=== PATIENT | male | born 1940 | race Caucasian/White ===

== ENCOUNTER 2020-05-10 13:47 | Emergency (ER) | payer MEDICARE, SELFPAY ==
--- NOTE | ~2020-05-10 | XR_ITS ---
EXAMINATION: 1. XR hand LT min 3V 2. XR wrist LT w scaphoid DATE: 05/10/2020 15:05 INDICATION: Left hand pain. TECHNIQUE: 3 views of left hand and 4 views of left wrist were obtained. COMPARISON: None. 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 No fracture. There is severe osteoarthritis of lunate -hamate joint and first carpometacarpal joint. LEFT HAND: No fracture. There is moderate osteoarthritis of first-third metacarpophalangeal joints an d mild osteoarthritis of fourth and fifth metacarpophalangeal joints and many of the interphalangeal joints. There is severe osteoarthritis of second and third distal interphalangeal joints. 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 Reviewed, dictated and finalized at location A. 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
[2020-05-10 13:53] VITALS: BP 128/72; PULSE 74; RESP 16; TEMP 36.8; O2SAT 96
--- NOTE | 2020-05-10 14:40 | ED.UPPEXIN ---
HPI - Extremity Injury (Upper) General Chief Complaint: Extremity Injury, Upper Stated Complaint: fall - wrist injury Time Seen by Provider: 05/10/20 14:18 Source: patient Mode of arrival: ambulatory Limitations: no limitations History of Present Illness HPI narrative: 79-year-old male Patient states that about 2 days ago he was using his walker and trying to go to fast and fell He landed on his outstretched left hand There has been pain to the palm of the hand and the thumb and the wrist since then Today they thought that the thumb was more swollen and ecchymotic and came in to be checked Pt is right handed He did not injure anything else, did not hit his head, does not have neck pain or any neurologic symptoms, and reported that it was a mechanical fall and there was no dizziness or syncope preceding it Related Data Home Medications Medication Instructions Recorded Confirmed calcium carbonate 600 mg calcium 600 mg PO DAILY 03/14/19 01/15/20 (1,500 mg) tablet cholecalciferol (vitamin D3) 50 2,000 unit PO DAILY 03/14/19 01/15/20 mcg (2,000 unit) tablet hydrocodone 5 mg-acetaminophen 325 1 tablet PO BID PRN tablet 03/14/19 01/15/20 mg tablet aspirin 325 mg tablet 325 mg PO DAILY 07/10/19 01/15/20 Allergies Allergy/AdvReac Type Severity Reaction Status Date / Time Sulfa (Sulfonamide Allergy Unknown Swelling Verified 05/10/20 14:00 Antibiotics) sulfanilamide Allergy Unknown Swelling Verified 05/10/20 14:00 BEE STINGS Allergy Mild Swelling Uncoded 05/10/20 14:00 Review of Systems Review of Systems: All systems reviewed & are unremarkable except as noted in HPI and below Constitutional: Constitutional: Denies headache(s) and Denies weakness ENT: Denies headache(s) Cardiovascular: Cardiovascular: Denies chest pain, Denies leg edema, Denies palpitations and Denies dyspnea Respiratory: Respiratory: Denies cough and Denies dyspnea Musculoskeletal: Musculoskeletal: Denies deformity, Reports arthralgias, Reports joint swelling, Denies muscle weakness and Denies numbness Integumentary/Breasts: Skin/Breast: Denies wounds Neurologic: Denies focal weakness Psychiatric: Psychiatric: Reports no additional psychiatric complaints Endocrine: Endocrine: Denies palpitations Hematologic/Lymphatic: Hematologic/Lymphatic: Denies easy bruising Allergic/Immunologic: Allergic/Immunologic: Denies wheezing PMFSH Past Medical History Medical History (Updated 05/10/20 @ 16:27 by Dante Caicedo MD) Impaired glucose tolerance Rotator cuff rupture Surgical History Surgical History H/O cataract removal with insertion of prosthetic lens H/O colonoscopy Hx of hernia repair Hx of laminectomy Hx of lithotripsy Status post lateral meniscal repair Family History Family History (Updated 08/23/18 @ 11:53 by DOCTOR UNKNOWN) Sibling Family history of Parkinson's disease, Onset Age: 81 Patient's brother is Father Family history of heart disease in male family member before age 55, Onset Age: 56 Patient's father is Family history of cardiovascular disease, Onset Age: 56 Mother Family history of heart disease in male family member before age 55, Onset Age: 83 Patient's mother is Family history of cardiovascular disease, Onset Age: 83 Social History Social History Smoking status: Never smoker Second hand tobacco smoke exposure: No Alcohol intake: never Exam Const: General: no acute distress, well developed, alert and awake Nutritional Appearance: thin Orientation/consciousness: patient oriented x3 (alert) Limitations: no limitations HENMT: Head: normocephalic and atraumatic Ears: external ears normal General nose exam: No nasal discharge present Face and sinus: face symmetric Eyes: Conjunctivae: conjunctivae n
[2020-05-10 15:45] VITALS: BP 128/76; PULSE 80; RESP 16; O2SAT 100
[2020-05-10 16:43] VITALS: BP 149/68; PULSE 78; RESP 18; TEMP 36.3; O2SAT 99
== END 2020-05-10 16:45 | disposition home or self-care (01) ==
PROVIDERS: Emergency Provider Emergency Medicine; PCP Internal Medicine
DX: S63.512A Sprain of carpal joint of left wrist, initial encounter (principal); Z98.49 Cataract extraction status, unspecified eye; Z96.1 Presence of intraocular lens; M19.042 Primary osteoarthritis, left hand; M18.9 Osteoarthritis of first carpometacarpal joint, unspecified; M19.032 Primary osteoarthritis, left wrist; W18.39XA Other fall on same level, initial encounter
CPT/HCPCS: 29125; 73110; 73130; 99283

== ENCOUNTER 2020-10-16 12:01 | Emergency (ER) | payer MEDICARE, SELFPAY ==
--- NOTE | ~2020-10-16 | CT_ITS ---
EXAMINATION: CT brain wo con DATE: 10/16/2020 14:14 INDICATION: Dizziness. TECHNIQUE: Computed tomography (CT) of the head was performed without intravenous contrast. The mA wa s adjusted according to patient size. Iterative reconstruction technique was employed. The dose-lengt h product was 681.00 mGy-cm. COMPARISON: Head CT 07/12/2013, brain MRI 07/12/2013 FINDINGS: There is no intracranial hemorrhage, acute infarction, or abnormal intracranial mass lesion . The ventricles are normal in size. There are likely changes of ocular lens replacement surgeries. T here is mild mucosal thickening in the ethmoid sinuses. There is a trace left mastoid effusion. IMPRESSION: 1. Normal brain. Reviewed, dictated and finalized at location B. IMPRESSION: 1. Normal brain.
[2020-10-16 12:01] VITALS: BP 143/64; PULSE 70; RESP 16; TEMP 36.1; O2SAT 96
[2020-10-16] MEDS: SODIUM CHLORIDE 0.9% IV 1,000 ML 999 ML IV CONT (12:21)
[2020-10-16] MEDS: ONDANSETRON INJ 4 MG/2 ML VIAL IV PUSH (12:22)
[2020-10-16 12:59] LABS: Basophils Percent Auto 0.6 % (0.2-1.2); Eosinophils Absolute Auto 0.1 K/mm3 (0-0.3); Eosinophils Percent Auto 1.5 % (0-4.4); Hematocrit 47.6 % (42.0-52.0); Hemoglobin 15.5 g/dL (14.0-18.0); Immature Granulocyte Percent A 1.4 % (0-0.5); Lymphocytes Absolute Auto 1.36 K/mm3 (0.9-3.2); Lymphocytes Percent Auto 18.7 % (18.3-44.2); Mean Corpuscular HGB Conc 32.6 g/dl (32-36); Mean Corpuscular Hemoglobin 33.3 pg (26-34); Mean Corpuscular Volume 102.1 fl (80-100); Mean Platelet Volume 10.8 fl (7.4-10.4); Monocytes Absolute Auto 0.9 K/mm3 (0.1-0.6); Monocytes Percent Auto 12.4 % (2.6-8.5); Neutrophils Absolute Auto 4.8 K/mm3 (1.3-6.7); Neutrophils Percent Auto 65.4 % (45.5-73.1); Platelet Count Result 75 k/mm3 (150-375); Red Blood Count 4.66 M/mm3 (4.6-6.20); White Blood Count 7.3 K/mm3 (4.5-10.0)
[2020-10-16 13:11] LABS: Alanine Aminotransferase 16 U/L (4-50); Albumin Level 4.3 g/dL (3.5-5.1); Alkaline Phosphatase 62 U/L (38-126); Anion Gap 10 mmol/L (8-16); Aspartate Amino Transferase 25 U/L (17-59); Bilirubin,Total 1.1 mg/dL (0.2-1.3); Blood Urea Nitrogen 30 mg/dL (9-20); Calcium 9.6 mg/dL (8.4-10.2); Carbon Dioxide 23 mmol/L (22-30); Chloride 105 mmol/L (98-107); Estimated CRCL calculation 38 ml/min; Estimated Glomerular Filt Rate 53; Glucose 148 mg/dL (65-110); Sodium 138 mmol/L (137-145)
--- NOTE | 2020-10-16 13:17 | ECG_ITS ---
Measurements Intervals [place] Rate: 49 P: 19 SC: 125 QRS: 54 QRSD: 129 T: 61 QT: 496 QTc: 452 Interpretive Statements SINUS BRADYCARDIA VENTRICULAR PREMATURE COMPLEXES INTRAVENTRICULAR CONDUCTION DELAY POSSIBLE LEFT VENTRICULAR HYPERTROPHY MINIMAL Q WAVES- ANTEROLATERAL LEADS INFERIOR INFARCT, AGE INDETERMINATE BORDERLINE ST-T WAVE ABNORMALITY- ANTEROLAT/HIGH LAT LEADS BASELINE ARTIFACT- I, II, AVR, AVL, AVF, V1-V6 ABNORMAL ECG Electronically Signed On 10-16-2020 14:46:35 CDT by Joseph Garza D.O.
--- NOTE | 2020-10-16 13:17 | ED.GENADULT ---
HPI - General Adult General Chief complaint: Nausea/Vomiting/Diarrhea <Palmira Maddox PA-C - Last Filed: 10/16/20 15:46> Stated complaint: N/V DIZZINESS <Palmira Maddox PA-C - Last Filed: 10/16/20 15:46> Time Seen by Provider: 10/16/20 12:15 <DENNIS Heck Last Filed: 10/16/20 15:46> Source: patient <DENNIS Heck Last Filed: 10/16/20 15:46> Mode of arrival: EMS <DENNIS Heck Last Filed: 10/16/20 15:46> Limitations: no limitations <Palmira Maddox PA-C - Last Filed: 10/16/20 15:46> History of Present Illness HPI narrative: Patient went for his morning massage today and prior to receiving his treatment he walked to the restroom and he states during that time he became dizzy and nauseous. He returned and had his entire massage, but when he turned over and set up he was dizzy and began vomiting. He is now primarily dry heaving. He states that when he opens his eyes he feels that the room is spinning. He does have a lot of nasal congestion. Denies any pain. He has a history of macular degeneration with very limited site and peripheral neuropathy. <Palmira Maddox PA-C - Last Filed: 10/16/20 15:46> Onset (ago): hour(s) <DENNIS Heck Last Filed: 10/16/20 15:46> Treatments prior to arrival: other (zofran by EMS) <DENNIS Heck Last Filed: 10/16/20 15:46> Related Data Home medications: Home Medications Medication Instructions Recorded Confirmed calcium carbonate 600 mg calcium 600 mg PO DAILY 03/14/19 07/22/20 (1,500 mg) tablet cholecalciferol (vitamin D3) 50 2,000 unit PO DAILY 03/14/19 07/22/20 mcg (2,000 unit) tablet aspirin 325 mg tablet 325 mg PO DAILY 07/10/19 07/22/20 <Palmira Maddox PA-C - Last Filed: 10/16/20 15:46> Allergies/adverse reactions: Allergies Allergy/AdvReac Type Severity Reaction Status Date / Time Sulfa (Sulfonamide Allergy Unknown Swelling Verified 10/16/20 12:16 Antibiotics) sulfanilamide Allergy Unknown Swelling Verified 10/16/20 12:16 BEE STINGS Allergy Mild Swelling Uncoded 10/16/20 12:16 <Palmira Maddox PA-C - Last Filed: 10/16/20 15:46> Review of Systems Review of Systems: All systems reviewed & are unremarkable except as noted in HPI and below <Palmira Maddox PA-C - Last Filed: 10/16/20 15:46> [facility] Past Medical History Medical History: Medical History Impaired glucose tolerance Rotator cuff rupture <Palmira Maddox PA-C - Last Filed: 10/16/20 15:46> Surgical History Surgical History: Surgical History H/O cataract removal with insertion of prosthetic lens H/O colonoscopy Hx of hernia repair Hx of laminectomy Hx of lithotripsy Status post lateral meniscal repair <Palmira Maddox PA-C - Last Filed: 10/16/20 15:46> Family History Family History: Family History Sibling Family history of Parkinson's disease, Onset Age: 81 Patient's brother is Father Family history of heart disease in male family member before age 55, Onset Age: 56 Patient's father is Family history of cardiovascular disease, Onset Age: 56 Mother Family history of heart disease in male family member before age 55, Onset Age: 83 Patient's mother is Family history of cardiovascular disease, Onset Age: 83 <Palmira Maddox PA-C - Last Filed: 10/16/20 15:46> Social History Social History: Social History Smoking status: Never smoker Second hand tobacco smoke exposure: No Alcohol intake: never <Palmira Maddox PA-C - Last Filed: 10/16/20 15:46> Exam Const: General: no acute distress and alert <Palmira Maddox PA-C - Last Filed: 10/16/20 15:46> Joel
[2020-10-16 13:30] VITALS: BP 132/64; PULSE 64; RESP 20; O2SAT 100
[2020-10-16 14:30] VITALS: BP 138/83; PULSE 53; RESP 18; O2SAT 95
[2020-10-16 15:02] LABS: Add Urine Microscopic? YES; Appearance Urine Clear (Clear); Bilirubin Urine Negative (Negative); Blood Urine Negative (Negative); Color Urine Yellow (Yellow); Glucose Urine UA Negative (Negative); Ketones Urine Trace mg/dL (Negative); Leukocyte Esterase Ur Negative LEU/UL (Negative); Mucus Urine Rare /lpf; Nitrate Urine Negative (Negative); Protein Urine 1+ mg/dL (Negative); Specific Grav Ur 1.017 (1.001-1.035); Urobilinogen Urine Negative mg/dL (<2.0); WBC Urine 0-3 /hpf
[2020-10-16] MEDS: MECLIZINE HCL 25 MG TABLET PO (15:04)
[2020-10-16 15:15] VITALS: BP 127/63; PULSE 55; RESP 16; O2SAT 95
[2020-10-16 17:04] VITALS: BP 127/53; PULSE 85; RESP 15; O2SAT 100
== END 2020-10-16 17:08 | disposition home or self-care (01) ==
PROVIDERS: Physician Assistant; Emergency Provider General Practice; PCP Internal Medicine
DX: R42 Dizziness and giddiness (principal); R00.8 Other abnormalities of heart beat; R09.81 Nasal congestion; H35.30 Unspecified macular degeneration; G62.9 Polyneuropathy, unspecified; Z98.49 Cataract extraction status, unspecified eye; Z96.1 Presence of intraocular lens; I49.3 Ventricular premature depolarization; R94.31 Abnormal electrocardiogram [ECG] [EKG]
CPT/HCPCS: 36415; 70450; 80053; 81001; 85025; 93005; 96361; 96374; 99284; A9270; J2405; J7030

== ENCOUNTER 2020-12-20 12:15 | Inpatient (IN) | payer MEDICARE, SELFPAY ==
[2020-12-18 09:58] VITALS: BMI 22.8
[2020-12-19] VITALS (23 sets, daily range): BP systolic 103–147; BP diastolic 50–82; PULSE 61–94; RESP 12–22; TEMP 36.1–36.8; O2SAT 94–99; BMI 21.4; BMI 22.4; BMI 23.1
[2020-12-19 07:46] LABS: Basophils Percent Auto 0.6 % (0.2-1.2); Eosinophils Absolute Auto 0.1 K/mm3 (0-0.3); Eosinophils Percent Auto 1.5 % (0-4.4); Hematocrit 48.3 % (42.0-52.0); Hemoglobin 16.1 g/dL (14.0-18.0); Immature Granulocyte Absolute 0.07 K/mm3 (0.00-0.031); Lymphocytes Absolute Auto 1.82 K/mm3 (0.9-3.2); Lymphocytes Percent Auto 25.6 % (18.3-44.2); Mean Corpuscular HGB Conc 33.3 g/dl (32-36); Mean Corpuscular Hemoglobin 33.7 pg (26-34); Mean Platelet Volume 10.6 fl (7.4-10.4); Monocytes Percent Auto 14.2 % (2.6-8.5); Neutrophils Absolute Auto 4.1 K/mm3 (1.3-6.7); Neutrophils Percent Auto 57.1 % (45.5-73.1); Platelet Count Result 81 k/mm3 (150-375); Red Blood Count 4.78 M/mm3 (4.6-6.20); Red Cell Distribution Width 13.9 % (11.5-14.5); White Blood Count 7.1 K/mm3 (4.5-10.0)
[2020-12-19 07:56] LABS: Anion Gap 10 mmol/L (8-16); Blood Urea Nitrogen 26 mg/dL (9-20); Calcium 9.7 mg/dL (8.4-10.2); Carbon Dioxide 27 mmol/L (22-30); Chloride 106 mmol/L (98-107); Estimated CRCL calculation 32 ml/min; Estimated Glomerular Filt Rate 45; Glucose 105 mg/dL (65-110); Sodium 143 mmol/L (137-145)
[2020-12-19 07:57] LABS: Prothrombin Time 13.2 Seconds (11.1-14.7)
--- NOTE | 2020-12-19 09:53 | WPDHPUPDATE1 ---
History and Physical Update Update Date/Time: 12/19/20 09:53 History and Physical has been reviewed, including an updated exam of the patient. There are NO changes in the patient's condition. Risks, benefits, and alternatives have been discussed and questions answered. Patient agrees to proceed with procedure.
--- NOTE | 2020-12-19 09:53 | WPDMODSED ---
Moderate Sedation Note-Pt Data Patient Data Allergies Allergy/AdvReac Type Severity Reaction Status Date / Time Sulfa (Sulfonamide Allergy Unknown Swelling Verified 12/19/20 07:43 Antibiotics) sulfanilamide Allergy Unknown Swelling Verified 12/19/20 07:43 BEE STINGS Allergy Mild Swelling Uncoded 12/19/20 07:43 Home Medications Medication Instructions Recorded Confirmed Type calcium carbonate 600 mg calcium 600 mg PO DAILY 03/14/19 12/18/20 History (1,500 mg) tablet cholecalciferol (vitamin D3) 50 2,000 unit PO DAILY 03/14/19 12/18/20 History mcg (2,000 unit) tablet aspirin 325 mg tablet 325 mg PO DAILY 07/10/19 12/18/20 History epinephrine 0.3 mg/0.3 mL 0.3 mg IM ONCE #1 ea 02/07/20 12/18/20 Rx injection, auto-injector fluticasone propionate 50 1 spray NASAL DAILY PRN #15.8 ml 06/20/20 12/18/20 Rx mcg/actuation nasal spray,suspension tramadol 50 mg tablet 50 mg PO Q6H PRN #120 tablet 06/21/20 12/18/20 Rx loratadine 10 mg tablet 10 mg PO DAILY 10/21/20 12/18/20 History hydrocodone-acetaminophen 1 tablet PO Q6H PRN 12/18/20 12/18/20 History Current Medications: Active Medications Sodium Chloride (Normal Saline Iv) 500 mls @ 100 mls/hr IV CONT .Q5H GABRIEL Sedation/Anesthesia: No previous sedation/anesthesia problems (including family history). [facility] Past Medical History Medical History Impaired glucose tolerance Rotator cuff rupture Surgical History Surgical History H/O cataract removal with insertion of prosthetic lens H/O colonoscopy Hx of hernia repair Hx of laminectomy Hx of lithotripsy Status post lateral meniscal repair Family History Family History Sibling Family history of Parkinson's disease, Onset Age: 81 Patient's brother is Father Family history of heart disease in male family member before age 55, Onset Age: 56 Patient's father is Family history of cardiovascular disease, Onset Age: 56 Mother Family history of heart disease in male family member before age 55, Onset Age: 83 Patient's mother is Family history of cardiovascular disease, Onset Age: 83 Social History Social History (Updated 10/21/20 @ 11:01 by Jesusita rTistan CNA) Smoking status: Never smoker Second hand tobacco smoke exposure: No Alcohol intake: never Substance use: never Gender identity (if verbalized by the patient): Male Sexual Orientation (if Verbalized by the Patient): Straight or Heterosexual Mod Sed Physical Exam Physical Exam Pre Procedural Exam: Normal: Appearance, Eyes, Ears, Nose, Neck, Throat, Airway, Lungs, Heart Size, Heart Rate, Heart Rhythm, Neuro Exam, Abdomen, Liver, Kidneys, Spleen, Breasts, Genitalia, Extremities and Skin Hours since solid foods: 8 Hours since liquid intake: 8 Mallampati Classification: class 1 Internal Medicine - PN: Obj Da Vital Signs Vital Signs: Vital Signs - 24 hr 12/19/20 07:40 Temperature 36.2 C L Pulse Rate 75 Respiratory Rate 21 H Blood Pressure 147/71 H Pulse Oximetry 94 Meds/Results Medications: Active Medications Generic Name Dose Route Start Last Admin Trade Name Freq PRN Reason Stop Dose Admin Sodium Chloride 500 mls @ 100 mls/hr 12/19/20 07:30 Normal Saline Iv IV CONT .Q5H GABRIEL Labs CBC & Chem 7: 12/19/20 07:33 12/19/20 07:33 Labs: Laboratory Results - last 24 hr 12/19/20 12/19/20 12/19/20 07:33 07:33 07:33 WBC 7.1 RBC 4.78 Hgb 16.1 Hct 48.3 MCV 101.0 H MCH 33.7 MCHC 33.3 RDW 13.9 Plt Count 81 L MPV 10.6 H Immature Gran % (Auto) 1.0 H Neut % (Auto) 57.1 Lymph % (Auto) 25.6 [place] % (Auto) 14.2 H Eos % (Auto) 1.5 Baso % (Auto) 0.6 Lymph # (Auto) 1.82 [place] # (Auto) 1.0 H Eos #
--- NOTE | 2020-12-19 09:53 | WPDCARDPROC ---
Cardiac Cath Procedure Note Date of procedure:: 12/19/20 Performing physician:: Dru Decker MD Date of service 12/19/2020 Indication:: ventricular tachycardia, abnormal stress test Brief clinical history:: this is 80-year-old patient who was referred to our office for evaluation for PVCs. Underwent heart monitor that shows nonsustained ventricular tachycardia. Underwent stress testing that was severely abnormal. Ejection fraction 25% On stress test. he denied chest pain, lower limb edema, dizziness or syncope. Due to abnormality on stress test we brought him in to cathode ray tube salvage processor to define coronary anatomy. Procedure Procedure performed:: 1-Moderate sedation that started at 9:20 a.m.and ended at 9:41 a.m. with total duration 21 minutes minutes using 1mg of Versed and 25mcg fentanyl. The registered nurse was dottie johnson. 2-Selective left and right coronary angiogram. 3-Left heart catheterization with measurement of LVEDP and measurement of gradient across aortic valve. 4-Right common femoral arterial angiogram. Sedation/Medication given:: Moderate sedation. Access site:: Right common femoral artery. Estimated blood loss:: 10cc Procedure note:: After informed consent patient was brought in to cathode ray tube salvage processor with the was draped and prepped in usual manner. Moderate sedation was given and the right groin was infiltrated using 1% lidocaine. Five Kinyarwanda sheath was obtained using micropuncture needle and the modified Seldinger technique. Selective left coronary angiogram was done using JL4 catheter with the tip of the catheter placed in the left main coronary artery. Selective right coronary angiogram was done using JR4 catheter with the tip of the catheter placed to the right coronary artery. After that 5 Kinyarwanda pigtail catheter was advanced across the aortic valve into the left ventricle with measurement of LVEDP and measurement of gradient across aortic valve. Right common femoral arterial angiogram was done. Findings:: 1- left coronary artery is a large artery that divides into large LAD, Medium size circumflex artery. Left main is free of disease. 2- left anterior descending artery is a large artery . It is totally occluded in the mid segment. [id number] collaterals. There is a large diagonal branch that comes off proximally and at the junction of the mid to distal segment there is about 90% stenosis. The diagonal branch divides into 2 branches after that. The inferior segment is totally occluded distally. 3- leftcircumflex artery is a Medium size. In the mid segment 90% stenosis. There is the medium size OM1 branch that has ostial 80%. 4- right coronary artery is Large artery and dominant and has proximal 80% in the mid segment 95% stenosis. AKHIL flow 2. The artery appears to be occluded distally. 5- LVEDP was 10 mm Hgand no gradient across aortic valve. 6- opening arterial pressure was 140/90 and closing pressure was 130/80 7- right femoral artery angiogram shows no significant disease in the right common femoral artery. Conclusion:: severe 3 vessel disease. Systolic dysfunction. Assessment and Plan Additional Plan - Will be transferring this patient for assessment for CABG. - Workup for thrombocytopenia. - Workup for CKD.
[2020-12-19] MEDS: SODIUM CHLORIDE 0.9% IV 1,000 ML 75 ML IV CONT (11:00)
--- NOTE | 2020-12-19 11:30 | SUR.PHASEII ---
Heart healthy meal ordered for this patient as requested
--- NOTE | 2020-12-19 12:31 | SUR.PHASEII ---
Pt up at 30deg eating lunch
--- NOTE | 2020-12-19 18:00 | ADMGEN ---
This patient, Mamadou Nielsen, was admitted to [facility] (will be moved [facility]). Patient/family oriented to hospital policies and general routines including ID bracelet, bed and alarms, visiting hours, pain management, procedures, bathroom and other care routines, personal items, smoking policy, room service/diet, and visiting hours. Information on how to activate the Rapid Response Team has been discussed. Patient/Family are encouraged to report perceived risks to care and to ask questions if they do not understand what they are told or what they should do.
[2020-12-19] MEDS: ENOXAPARIN 60 MG/0.6 ML SYRINGE SUB-Q (18:04)
--- NOTE | 2020-12-19 18:32 | PC.NURSE ---
Report called to ORIANA Royal, pt to be transferred to IMU from [facility]
--- NOTE | 2020-12-19 18:53 | PC.NURSE ---
Pt received from [facility]. Report received from Jamaal RN @ [phone]
[2020-12-20] VITALS (16 sets, daily range): BP systolic 115–153; BP diastolic 65–81; PULSE 64–93; RESP 14–22; TEMP 35.7–36.7; O2SAT 97–100; BMI 23.3
--- NOTE | 2020-12-20 04:40 | PC.NURSE ---
Spoke with [facility] transfer center at 0335 a.m. Updated facility on vitals and patient condition. No bed available at this time.
[2020-12-20] MEDS: ENOXAPARIN 60 MG/0.6 ML SYRINGE SUB-Q (05:14)
[2020-12-20 05:40] LABS: Basophils Percent Auto 0.3 % (0.2-1.2); Eosinophils Percent Auto 0.6 % (0-4.4); Hematocrit 45.4 % (42.0-52.0); Hemoglobin 15.2 g/dL (14.0-18.0); Immature Granulocyte Absolute 0.07 K/mm3 (0.00-0.031); Lymphocytes Absolute Auto 1.33 K/mm3 (0.9-3.2); Lymphocytes Percent Auto 19.8 % (18.3-44.2); Mean Corpuscular HGB Conc 33.5 g/dl (32-36); Mean Corpuscular Hemoglobin 34.1 pg (26-34); Mean Corpuscular Volume 101.8 fl (80-100); Mean Platelet Volume 10.8 fl (7.4-10.4); Monocytes Absolute Auto 0.9 K/mm3 (0.1-0.6); Monocytes Percent Auto 13.4 % (2.6-8.5); Neutrophils Absolute Auto 4.4 K/mm3 (1.3-6.7); Neutrophils Percent Auto 64.9 % (45.5-73.1); Platelet Count Result 64 k/mm3 (150-375); Red Blood Count 4.46 M/mm3 (4.6-6.20); Red Cell Distribution Width 13.9 % (11.5-14.5); White Blood Count 6.7 K/mm3 (4.5-10.0)
[2020-12-20] MEDS: ASPIRIN 325 MG TABLET PO (09:38)
[2020-12-20] MEDS: CHOLECALCIFEROL 1,000 UNITS TABLET 2000 UNITS PO (09:38)
[2020-12-20] MEDS: CALCIUM CARBONATE (OSCAL) 500 MG TABLET PO (09:38)
[2020-12-20] MEDS: LORATADINE 10 MG TABLET PO (09:38)
--- NOTE | 2020-12-20 12:58 | PC.NURSE ---
On 12/20/20, the student, [Lin Rasheed], provided care and completed [facility] documentation on this patient. I have reviewed the student's documentation and agree with the findings.
--- NOTE | 2020-12-20 14:33 | PM.PNCARD ---
Progress Note: A&P Additional Plan 80-year-old man with: Multivessel coronary artery disease and severe ischemic cardiomyopathy. My partner, Dr. Decker performed outpatient catheterization today and the decision was made to keep patient in the hospital and transfer for cardiothoracic surgical consultation. Still no bed available at [facility] according to the nurse. I will look into this myself. In the meantime I will start low-dose carvedilol and rosuvastatin. If he remains at [facility] we will add an ARB or an CASSANDRA-inhibitor tomorrow. If the patient decides to declined the option of surgery we will send him home on guideline directed medical therapy Mook Savage MD [facility] Subjective Date/time seen: Date of service: 12/20/20 14:33 Interval history: This is follow-up visit in this 80-year-old man with: Recently diagnosed left ventricular systolic dysfunction, catheterization yesterday demonstrating severe 3 vessel coronary artery disease for which surgical revascularization has been recommended. The patient is currently waiting for a bed either at [facility] or [facility]. He is asymptomatic and feels well. He is interestingly not experiencing any ischemic chest pain nor any significant shortness of breath. He is on aspirin but no other medical therapy. Patient states that he was thinking about the decision as to whether to undergo surgery at this point in life or not. At this point he still wishes to go through with this had a long discussion with him today about these issues in the room. He has no other family his has and he is not close to any of his children. He has a caregiver who is participates with his care at home. Exam Const: General: comfortable and no acute distress Other: Very pleasant elderly man no distress of any kind HENMT: Mouth: Yes moist mucous membranes Eyes: Sclera: sclerae normal Pupils: Equal, round and reactive pupils present Neck: Neck: supple and no JVD Resp: Effort & Inspection: normal respiratory effort Auscultation: clear to auscultation bilaterally Cardio: Rate: regular rate Rhythm: regular rhythm Other: PMI is enlarged no audible murmur GI: GI Palp: Yes Soft to palpation Auscultation: normal bowel sounds Skin: General skin exam: normal color Neuro: Cognition (Neuro): normal cognition Extrem: General: normal to inspection Objective Data Vital Signs Vital Signs: Vital Signs - 24 hr 12/19/20 15:30 12/19/20 16:00 12/19/20 16:30 Temperature Pulse Rate 69 74 79 Respiratory Rate 18 20 15 Blood Pressure 130/70 131/67 Pulse Oximetry 96 12/19/20 17:30 12/19/20 18:17 12/19/20 18:30 Temperature Pulse Rate 77 79 74 Respiratory Rate 17 20 Blood Pressure 117/63 Pulse Oximetry 98 96 12/19/20 19:44 12/19/20 20:00 12/19/20 22:00 Temperature 36.8 C Pulse Rate 79 79 94 Respiratory Rate 16 Blood Pressure 125/70 Pulse Oximetry 99 12/20/20 00:00 12/20/20 02:00 12/20/20 03:44 Temperature 36.7 C 36.2 C L Pulse Rate 93 76 81 Respiratory Rate 18 14 Blood Pressure 137/81 125/72 Pulse Oximetry 98 99 12/20/20 04:00 12/20/20 06:00 12/20/20 07:59 Temperature 36.6 C Pulse Rate 78 64 86 Respiratory Rate 16 Blood Pressure 130/70 Pulse Oximetry 100 12/20/20 08:00 12/20/20 08:44 12/20/20 10:00 Temperature 35.7 C L Pulse Rate 89 84 88 Respiratory Rate 18 Blood Pressure 140/68 Pulse Oximetry 99 12/20/20 12:00 12/20/20 12:40 Temperature 36.6 C 36.3 C L Pulse Rate 89 87 Respiratory Rate 16 18 Blood Pressure 131/69 115/65 Pulse Oximetry 97 98 Intake/Output Intake/Output: Intake & Output 12/17/20 12/18/20 12/19/20 12/20/20 23:59 23:59 23:59 23:59 Intake Total 500 980 Output Total 500 1040 Balance 0 -60 Meds/Results Medications: Active Medications Generic Name Dose Route Start Last Admin Trade Name Freq PRN Reason Stop Dose Admin H
[2020-12-20] MEDS: carvediloL 3.125 MG TABLET PO (20:05)
--- NOTE | 2021-02-07 07:41 | PM.TDS ---
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: Code(s): I25.119 - Atherosclerotic heart disease of viejas coronary artery with unspecified angina pectoris Status: Acute Transfer Discharge Sum: Med Medications Active and Home Medications: Home Medications calcium carbonate 600 mg calcium (1,500 mg) tablet 600 mg PO DAILY 03/14/19 [History Confirmed 01/27/21] cholecalciferol (vitamin D3) 50 mcg (2,000 unit) tablet 2,000 unit PO DAILY 03/14/19 [History Confirmed 01/27/21] epinephrine 0.3 mg/0.3 mL injection, auto-injector 0.3 mg IM ONCE #1 ea 02/07/20 [Rx Confirmed 01/27/21] fluticasone propionate 50 mcg/actuation nasal spray,suspension 1 spray NASAL DAILY PRN #15.8 ml 06/20/20 [Rx Confirmed 01/27/21] tramadol 50 mg tablet 50 mg PO Q6H PRN #120 tablet 06/21/20 [Rx Confirmed 01/27/21] loratadine 10 mg tablet 10 mg PO DAILY 10/21/20 [History Confirmed 01/27/21] hydrocodone-acetaminophen 1 tablet PO Q6H PRN 12/18/20 [History Confirmed 01/27/21] vitamin A-vitamin C-vit E-min [Ocuvite] 1 tablet PO DAILY 12/19/20 [History Confirmed 01/27/21] aspirin 81 mg tablet,delayed release 81 mg PO DAILY 01/27/21 [History Confirmed 01/27/21] atorvastatin 40 mg tablet 40 mg PO DAILY 01/27/21 [History Confirmed 01/27/21] clopidogrel 75 mg tablet 75 mg PO DAILY 01/27/21 [History Confirmed 01/27/21] lisinopril 2.5 mg tablet 2.5 mg PO DAILY 01/27/21 [History Confirmed 01/27/21] metoprolol succinate 25 mg tablet,extended release 24 hr 25 mg PO DAILY 01/27/21 [History Confirmed 01/27/21] Transfer Discharge Sum: Hosp Hospital Course Hospital course: Mamadou Nielsen is a 80 year old male who has a history coronary artery disease admitted to the hospital as an outpatient for coronary angiography by Dr. Decker. He was found to have severe multivessel coronary artery disease and felt to be a candidate for surgical myocardial revascularization. Recommendations were made for an plans for transfer to [facility] for cardiothoracic surgery consultation. The patient remained at [facility] until the following day waiting for bed availability at [facility]. When bed became available he was transferred for this reason. Time Spent with Patient Time attestation: Total time spent providing and/or coordinating transfer services: Exam Const: General: comfortable and no acute distress Other: Elderly white male no distress HENMT: Mouth: Yes dry mucous membranes Eyes: Sclera: sclerae normal Pupils: Equal, round and reactive pupils present Neck: Neck: supple and no JVD Other: Carotid upstrokes intact no bruits Resp: Effort & Inspection: normal respiratory effort Auscultation: clear to auscultation bilaterally Cardio: Rate: regular rate Rhythm: regular rhythm Other: Grade 2 crescendo decrescendo murmur does not radiate from the left sternal border GI: GI Palp: Yes Soft to palpation Auscultation: normal bowel sounds Skin: General skin exam: normal color Neuro: Cognition (Neuro): normal cognition Extrem: General: normal to inspection
== END 2020-12-20 20:45 | disposition short-term general hospital (02) | DRG 287 ==
LOC: ANHCATHLAB 13:44 → ANHIMU 12-24 12:50
PROVIDERS: Internal Medicine Cardiovascular Disease; Admitting Provider Internal Medicine Cardiovascular Disease; PCP Internal Medicine; Visit Provider Specialist
PROC: 4A023N7 Measurement of Cardiac Sampling and Pressure, Left Heart, Percutaneous Approach (ICD-10-PCS; CPT 93452; principal; 2020-12-19 09:00)
DX: I25.119 Atherosclerotic heart disease of native coronary artery with unspecified angina pectoris; I47.2 Ventricular tachycardia; I25.5 Ischemic cardiomyopathy; R94.39 Abnormal result of other cardiovascular function study; Z79.82 Long term (current) use of aspirin; Z79.899 Other long term (current) drug therapy; Z88.2 Allergy status to sulfonamides; Z98.49 Cataract extraction status, unspecified eye; Z96.1 Presence of intraocular lens
CPT/HCPCS: 36415; 80048; 85025; 85610; 93458; A9270; C1887; C1894; J0461; J1644; J1650; J2250; J3010; J7030; J7040

== ENCOUNTER 2021-04-26 09:20 | Emergency (ER) | payer MEDICARE, SELFPAY ==
--- NOTE | ~2021-04-26 | US_ITS ---
EXAMINATION: US abdomen limited EXAM DATE: 04/26/2021 11:14 INDICATION: Elevated LFTS. TECHNIQUE: Multiple grayscale and Doppler images of the abdomen right upper quadrant were obtained (robyn y a technologist who performed the scan) and subsequently reviewed. There is no prior study for jaye huertas. FINDINGS: The pancreatic head and body are normal in appearance. The pancreatic tail is not visualized. There is heterogeneous liver echogenicity with possibility of focal masses, largest measuring 3.5 cm. The l iver contour is nodular in appearance, suspicious for cirrhosis. There is no evidence of intrahepatic biliary duct dilation. Portal venous flow was seen in the hepat opedal, normal direction and has normal Doppler waveform. No right-sided hydronephrosis. Common bile duct measures 5 mm, which is normal. There are multiple gallstones. Gallbladder is only m ildly distended. There is gallbladder wall thickening, measuring about 5 mm which is nonspecific give n the suspected liver disease and also without sonographic Zapata sign. No pericholecystic fluid. IMPRESSION: 1. Heterogeneous liver, could be cirrhosis with regenerating nodules but mass or masses also possibl e and follow-up CT or MRI with contrast should be obtained. 2. Cholelithiasis, nonspecific gallbladder wall thickening. Reviewed, dictated and finalized at location A. NE LATHE OPERATOR IMPRESSION: 1. Heterogeneous liver, could be cirrhosis with regenerating nodules but mass or masses also possible and follow-up CT or MRI with contrast should be obtaine d. 2. Cholelithiasis, nonspecific gallbladder wall thickening.
--- NOTE | 2021-04-26 09:27 | ECG_ITS ---
Measurements Intervals [place] Rate: 65 P: 43 TX: 168 QRS: 53 QRSD: 130 T: 104 QT: 408 QTc: 426 Interpretive Statements SINUS RHYTHM INTRAVENTRICULAR CONDUCTION DELAY LEFT VENTRICULAR HYPERTROPHY AND ST-T CHANGE MINIMAL Q WAVES- ANTEROLATERAL LEADS INFERIOR INFARCT, AGE INDETERMINATE ST-T WAVE ABNORMALITY IN ANTEROLAT/HIGH LAT LEADS- CONSIDER ISCHEMIA BASELINE ARTIFACT- II, III, AVR, AVL, AVF ABNORMAL ECG Electronically Signed On 04-26-2021 14:09:56 JACK FRAME TENDER by Joseph Garza D.O.
--- NOTE | 2021-04-26 09:29 | ED.WEAKNESS ---
HPI - Weakness General Chief complaint: Weakness Stated complaint: weakness Time Seen by Provider: 04/26/21 09:26 Source: patient History of Present Illness HPI Narrative: Patient presents with weakness. Patient ports he been feeling well over the past couple days this morning when he woke up he was feeling and lack of energy he went to try and have breakfast however he continued to feel generalized weak again described as not having enough energy so he came to the ER for evaluation. Denies any focal weakness such as upper extremity weakness lower extremity weakness left or right weakness. Denies any headaches or focal areas of pain such as chest pain or abdominal pain denies any nausea vomiting diarrhea. Denies any diaphoresis. Denies any recent fevers, cough, congestion, difficulty with urination. Related Data Home Medications Medication Instructions Recorded Confirmed calcium carbonate 600 mg calcium 600 mg PO DAILY 03/14/19 01/27/21 (1,500 mg) tablet cholecalciferol (vitamin D3) 50 2,000 unit PO DAILY 03/14/19 01/27/21 mcg (2,000 unit) tablet loratadine 10 mg tablet 10 mg PO DAILY 10/21/20 01/27/21 vitamin A-vitamin C-vit E-min 1 tablet PO DAILY 12/19/20 01/27/21 [Ocuvite] aspirin 81 mg tablet,delayed 81 mg PO DAILY 01/27/21 01/27/21 release atorvastatin 40 mg tablet 40 mg PO DAILY 01/27/21 01/27/21 clopidogrel 75 mg tablet 75 mg PO DAILY 01/27/21 01/27/21 lisinopril 2.5 mg tablet 2.5 mg PO DAILY 01/27/21 01/27/21 metoprolol succinate 25 mg 25 mg PO DAILY 01/27/21 01/27/21 tablet,extended release 24 hr Allergies Allergy/AdvReac Type Severity Reaction Status Date / Time Sulfa (Sulfonamide Allergy Unknown Swelling Verified 01/27/21 09:07 Antibiotics) sulfanilamide Allergy Unknown Swelling Verified 01/27/21 09:07 BEE STINGS Allergy Mild Swelling Uncoded 01/27/21 09:07 Review of Systems Review of Systems: CONSTITUTIONAL: Denies fever, chills, or sweats. EYES: Denies visual changes, redness, or discharge. ENT: Denies rhinorrhea, congestion, sore throat, or otalgia. CARDIOVASCULAR: Denies chest pain, palpitations, or edema. RESPIRATORY: Denies cough or dyspnea. GASTROINTESTINAL: Denies abdominal pain, nausea, vomiting, or diarrhea. GENITOURINARY: Denies dysuria or hematuria. SKIN: Denies rash or itching. MUSCULOSKELETAL: Denies back pain, joint pain, or myalgia. NEUROLOGIC: Denies headache, numbness, dizziness, or focal weakness. PSYCHIATRIC: Denies anxiety or depression. All systems reviewed & are unremarkable except as noted in HPI and below PMFSH Past Medical History Medical History Impaired glucose tolerance Rotator cuff rupture Surgical History Surgical History H/O cataract removal with insertion of prosthetic lens H/O colonoscopy Hx of hernia repair Hx of laminectomy Hx of lithotripsy Status post lateral meniscal repair Family History Family History Sibling Family history of Parkinson's disease, Onset Age: 81 Patient's brother is Father Family history of heart disease in male family member before age 55, Onset Age: 56 Patient's father is Family history of cardiovascular disease, Onset Age: 56 Mother Family history of heart disease in male family member before age 55, Onset Age: 83 Patient's mother is Family history of cardiovascular disease, Onset Age: 83 Social History Social History Smoking status: Never smoker Second hand tobacco smoke exposure: No Alcohol intake: never Substance use: never Additional living arrangements comments: has a caregiver who helps him and takes Gender identity (if verbalized by the patient): Male Sexual Orientation (if Verbalized by the Patient): Straight or
[2021-04-26 09:36] VITALS: BP 122/64; PULSE 67; RESP 16; TEMP 36.6; O2SAT 98
[2021-04-26] MEDS: SODIUM CHLORIDE 0.9% IV 500 ML 999 ML IV CONT (09:56)
[2021-04-26 09:57] LABS: Basophils Absolute Auto 0.1 K/mm3 (0.0-0.1); Basophils Percent Auto 0.6 % (0.2-1.2); Eosinophils Absolute Auto 0.1 K/mm3 (0-0.3); Eosinophils Percent Auto 1.6 % (0-4.4); Hematocrit 41.1 % (42.0-52.0); Hemoglobin 14.2 g/dL (14.0-18.0); Immature Granulocyte Absolute 0.13 K/mm3 (0.00-0.031); Immature Granulocyte Percent A 1.6 % (0-0.5); Immature Platelet Fraction Pct 4.9 % (0.9-11.2); Lymphocytes Absolute Auto 1.08 K/mm3 (0.9-3.2); Lymphocytes Percent Auto 12.9 % (18.3-44.2); Mean Corpuscular HGB Conc 34.5 g/dl (32-36); Mean Corpuscular Hemoglobin 35.4 pg (26-34); Mean Corpuscular Volume 102.5 fl (80-100); Mean Platelet Volume 10.7 fl (7.4-10.4); Monocytes Absolute Auto 1.3 K/mm3 (0.1-0.6); Monocytes Percent Auto 14.9 % (2.6-8.5); Neutrophils Absolute Auto 5.7 K/mm3 (1.3-6.7); Neutrophils Percent Auto 68.4 % (45.5-73.1); Platelet Count Result 105 k/mm3 (150-375); Red Blood Count 4.01 M/mm3 (4.6-6.20); Red Cell Distribution Width 14.1 % (11.5-14.5); White Blood Count 8.4 K/mm3 (4.5-10.0)
[2021-04-26 10:05] LABS: Alanine Aminotransferase 81 U/L (4-50); Albumin Level 4.1 g/dL (3.5-5.1); Alkaline Phosphatase 653 U/L (38-126); Anion Gap 10 mmol/L (8-16); Aspartate Amino Transferase 78 U/L (17-59); Bilirubin,Total 1.8 mg/dL (0.2-1.3); Blood Urea Nitrogen 29 mg/dL (9-20); Calcium 9.5 mg/dL (8.4-10.2); Carbon Dioxide 25 mmol/L (22-30); Chloride 103 mmol/L (98-107); Estimated CRCL calculation 32 ml/min; Estimated Glomerular Filt Rate 49; Glucose 103 mg/dL (65-110); Magnesium 2.1 mg/dL (1.6-2.3); Potassium 4.3 mmol/L (3.4-5.0); Sodium 138 mmol/L (137-145)
[2021-04-26 10:08] LABS: Add Urine Microscopic? YES; Appearance Urine Clear (Clear); Bilirubin Urine Negative (Negative); Blood Urine Negative (Negative); Color Urine Yellow (Yellow); Glucose Urine UA Negative (Negative); Ketones Urine Negative (Negative); Leukocyte Esterase Ur Negative LEU/UL (Negative); Mucus Urine Rare /lpf; Nitrate Urine Negative (Negative); Protein Urine Negative (Negative); RBC Urine 0-2 /hpf (0-2); Specific Grav Ur 1.011 (1.001-1.035); Urobilinogen Urine Negative mg/dL (<2.0); WBC Urine 0-3 /hpf
[2021-04-26 12:16] VITALS: BP 131/63; PULSE 66; RESP 19; TEMP 36.3; O2SAT 99
[2021-04-26 12:17] VITALS: BP 131/63; PULSE 66; RESP 19; TEMP 36.3; O2SAT 99
[2021-04-26 13:33] LABS: Alanine Aminotransferase 80 U/L (4-50); Albumin Level 4.1 g/dL (3.5-5.1); Alkaline Phosphatase 626 U/L (38-126); Aspartate Amino Transferase 83 U/L (17-59); Bilirubin,Total 1.8 mg/dL (0.2-1.3)
--- NOTE | 2021-05-01 08:19 | PC.NURSE ---
LATE ENTRY This note is being entered to document information to the patient's record. The following information was omitted on [05/01/2021], by []Mitul Lacy RN. Normal Saline stopped at 0956 on 04/26/2021
== END 2021-04-26 12:26 | disposition home or self-care (01) ==
PROVIDERS: Emergency Provider Emergency Medicine; PCP Internal Medicine
DX: R53.1 Weakness (principal); R74.01 Elevation of levels of liver transaminase levels; Z98.49 Cataract extraction status, unspecified eye; Z96.1 Presence of intraocular lens; Z79.82 Long term (current) use of aspirin; K80.20 Calculus of gallbladder without cholecystitis without obstruction; R93.2 Abnormal findings on diagnostic imaging of liver and biliary tract; I45.9 Conduction disorder, unspecified; I51.7 Cardiomegaly; R94.31 Abnormal electrocardiogram [ECG] [EKG]
CPT/HCPCS: 36415; 76705; 80053; 80076; 81001; 83735; 85025; 85055; 93005; 99283; J7040

== ENCOUNTER 2021-04-28 12:34 | Inpatient (IN) | payer MEDICARE, SELFPAY ==
[2021-04-28] VITALS (32 sets, daily range): BP systolic 107–128; BP diastolic 50–69; PULSE 68–86; RESP 13–27; TEMP 35.7–36.2; O2SAT 18–100; BMI 20.2
--- NOTE | ~2021-04-28 | MR_ITS ---
EXAMINATION: MR brain/brain stem wo gary EXAM DATE: 04/29/2021 14:16 INDICATION: Dizziness TECHNIQUE: Magnetic resonance imaging (MRI) of the brain/brain stem obtained without contrast. Alaina al T1, axial diffusion, gradient echo (T2*), T1, T2, FLAIR sequences obtained. Comparison is made to prior examination from 07/12/2013. FINDINGS: There is punctate acute infarction in the left centrum semiovale There is no acute hemorrha ge seen on the T2*, a hemosiderin sensitive sequence. No intraparenchymal brain mass. The ventricles are normal in size. There are no extra-axial collections. Flow voids are seen in the cerebral vero ray on the T2-weighted sequences consistent with their expected patency. The orbits are unremarkabl e. Soft tissue is unremarkable. IMPRESSION: Punctate acute left centrum semiovale infarction. Reviewed, dictated and finalized at location B. PROCESSOR
--- NOTE | ~2021-04-28 | CT_ITS ---
EXAMINATION: CT chest abdomen pelvis wo con DATE: 04/28/2021 17:27 INDICATION: Abnormal liver function tests. Right-sided weakness for 2 weeks. Abnormal chest radiograp h. An intra-articular or torsion TECHNIQUE: Computed tomography (CT) of the chest, abdomen, and pelvis was performed without intraveno us contrast. Automated exposure control and iterative reconstruction technique were employed. Exam do se: 619.78 mGy-cm total exam DLP. COMPARISON: April 28, 2021 chest FINDINGS: CHEST CT: There is bilateral lower lobe mild dependent atelectasis. There is mild discoid atelectasis in the anterior basilar segment of the left lower lobe. Thoracic aortic aneurysm, the ascending aorta measuring 4.3 cm diameter, the aortic arch up to 3.1 cm , the proximal descending thoracic aorta 3.4 cm diameter. No hilar or mediastinal mass lesion or lymphadenopathy is evident. Heart size is within normal limits. No pericardial or pleural effusion. ABDOMEN/PELVIS CT: There is heterogeneous density of the liver apparently due to numerous metastatic deposits. There are numerous faceted stones nearly completely filling the gallbladder lumen. There is gallbladd er wall thickening which may be due to chronic or acute cholecystitis. Radionuclide hepatobiliary sca n can help differentiate these possibilities. Prominent duodenal diverticulum. Approximately 1.6 x 1.2 cm right adrenal mass which may be due to adenoma or metastasis. 3.7 cm lower pole exophytic right renal cyst. 1.4 cm mid to upper right renal cyst. Normal appendix. Diverticulosis sigmoid colon; no CT evidence of diverticulitis. There is a prominent of fecal material in the colon but no bowel obstruction is evident. There is prostate enlargement and calcification. The urinary bladder is unremarkable. There is extensive calcification of the abdominal aorta but no aneurysm. No intraperitoneal or retrop eritoneal or pelvic mass lesion or adenopathy or ascites. Severe degenerative disc disease in lower cervical spine. Severe degenerative disease at T1-2 with 4 mm anterolisthesis. There is multilevel degenerative disc disease of the thoracic and particularly se leighann at the lumbar spine. There is severe degenerative changes apophyseal joints with associated grad e 1 anterolisthesis at L4-5. Status post lower anterior abdominal wall surgical repair. Bilateral hip osteoarthritis. IMPRESSION: Bilateral lower lobe mild dependent atelectasis, mild discoid atelectasis at anterior ba silar left lower lobe Thoracic aortic aneurysm Extensive hepatic metastases Cholelithiasis Gallbladder wall thickening, which might be due to chronic or acute cholecystitis Duodenal diverticulum 1.6 x 1.2 cm right adrenal mass which may be due to adenoma or metastasis Right renal cysts Normal appendix Diverticulosis of the colon Prostate enlargement and calcification Reviewed, dictated and finalized at Location A. Reviewed, dictated and finalized at location A. STOCK TRUCKER IMPRESSION: Bilateral lower lobe mild dependent atelectasis, mild discoid atel ectasis at anterior basilar left lower lobe Thoracic aortic aneurysm Extensive hepatic metastases Cholelithiasis Gallbladder wall thickening, which might be due to chronic or acute cholecystit is Duodenal diverticulum 1.6 x 1.2 cm right adrenal mass which may be due to adenoma or metastasis Right renal cysts Normal appendix Diverticulosis of the colon Prostate enlargement and calcification
--- NOTE | ~2021-04-28 | CT_ITS ---
EXAMINATION: CT brain wo con DATE: 04/28/2021 15:00 INDICATION: Right hemiparesis. TECHNIQUE: Computed tomography (CT) of the head was performed without intravenous contrast. The mA wa s adjusted according to patient size. Iterative reconstruction technique was employed. The dose-lengt h product was 681.00 mGy-cm. COMPARISON: Head CT 10/16/2020 FINDINGS: There are scattered areas of low attenuation in the cerebral white matter, which is within normal limits for the patient's age. There is no intracranial hemorrhage, acute infarction, or abnorm al intracranial mass lesion. The ventricles are normal in size. There is minimal mucosal thickening i n the paranasal sinuses. There are likely changes of ocular lens replacement surgeries. There are tra ce bilateral mastoid effusions. IMPRESSION: 1. Normal brain. Reviewed, dictated and finalized at location A. KER TABLE WORKER IMPRESSION: 1. Normal brain.
--- NOTE | ~2021-04-28 | XR_ITS ---
EXAMINATION: XR chest 1V DATE: 04/28/2021 15:06 INDICATION: Weakness. TECHNIQUE: A single frontal view of the chest was obtained. COMPARISON: Chest single view 08/16/2007 FINDINGS: There is chronic mild elevation of left hemidiaphragm. There are mild airspace opacities in right midlung zone. No pleural effusion or pneumothorax. The heart size is normal. IMPRESSION: 1. Mild airspace opacities in right midlung zone, consistent with atelectasis/scarring versus pneumon ia. Reviewed, dictated and finalized at location A. [employer] MEDI[employer] IMPRESSION: 1. Mild airspace opacities in right midlung zone, consistent with atelectasis/s carring versus pneumonia.
--- NOTE | 2021-04-28 14:49 | ECG_ITS ---
Measurements Intervals [place] Rate: 70 P: 16 UT: 148 QRS: 58 QRSD: 127 T: 102 QT: 391 QTc: 423 Interpretive Statements SINUS RHYTHM EARLY PRECORDIAL R/S TRANSITION MINIMAL Q WAVES- ANTEROLATERAL LEADS INFERIOR INFARCT, AGE INDETERMINATE BORDERLINE ST-T WAVE ABNORMALITY- ANTEROLAT/HIGH LAT LEADS ABNORMAL ECG Electronically Signed On 04-28-2021 15:42:09 HOME IMPROVEMENT INSTALLER by Joseph Garza D.O.
--- NOTE | 2021-04-28 15:10 | ED.GENADULT ---
HPI - General Adult General Chief complaint: Fall Stated complaint: fall Time Seen by Provider: 04/28/21 13:11 Source: patient and family Mode of arrival: ambulatory Limitations: no limitations History of Present Illness HPI narrative: Patient is 80 years old white male came to the emergency room with his daughter because of a fall. weakness of the right side of his body. Patient was trying to move a chair and somehow twisted his body and fell, did not hit his head, denies any injuries. Patient is telling me that been having gradual weakness right upper and right lower extremity over the last 7 to 14 days, today is the worst. Patient's daughter noticed that her father dragging the right leg during walking. Patient denies any fever, chills, nausea, vomiting, chest pain, shortness of breath, headache. Currently patient on aspirin and Plavix. Related Data Home Medications Medication Instructions Recorded Confirmed calcium carbonate 600 mg calcium 600 mg PO DAILY 03/14/19 04/28/21 (1,500 mg) tablet cholecalciferol (vitamin D3) 50 2,000 unit PO DAILY 03/14/19 04/28/21 mcg (2,000 unit) tablet vitamin A-vitamin C-vit E-min 1 tablet PO DAILY 12/19/20 04/28/21 [Ocuvite] aspirin 81 mg tablet,delayed 81 mg PO DAILY 01/27/21 04/28/21 release clopidogrel 75 mg tablet 75 mg PO DAILY 01/27/21 04/28/21 lisinopril 2.5 mg tablet 2.5 mg PO DAILY 01/27/21 04/28/21 metoprolol succinate 25 mg 25 mg PO DAILY 01/27/21 04/28/21 tablet,extended release 24 hr atorvastatin 40 mg tablet 20 mg PO DAILY tablet 04/28/21 04/28/21 Allergies Allergy/AdvReac Type Severity Reaction Status Date / Time Sulfa (Sulfonamide Allergy Unknown Swelling Verified 04/28/21 10:06 Antibiotics) sulfanilamide Allergy Unknown Swelling Verified 04/28/21 10:06 BEE STINGS Allergy Mild Swelling Uncoded 04/28/21 10:06 Review of Systems Review of Systems: CONSTITUTIONAL: Denies fever, chills, or sweats. EYES: Denies visual changes, redness, or discharge. ENT: Denies rhinorrhea, congestion, sore throat, or otalgia. CARDIOVASCULAR: Denies chest pain, palpitations, or edema. RESPIRATORY: Denies cough or dyspnea. GASTROINTESTINAL: Denies abdominal pain, nausea, vomiting, or diarrhea. GENITOURINARY: Denies dysuria or hematuria. SKIN: Denies rash or itching. MUSCULOSKELETAL: Denies back pain, joint pain, or myalgia. NEUROLOGIC: Denies headache, numbness, or weakness. PSYCHIATRIC: Denies anxiety or depression. [facility] Past Medical History Medical History Impaired glucose tolerance Rotator cuff rupture Surgical History Surgical History H/O cataract removal with insertion of prosthetic lens H/O colonoscopy Hx of hernia repair Hx of laminectomy Hx of lithotripsy Status post lateral meniscal repair Family History Family History Sibling Family history of Parkinson's disease, Onset Age: 81 Patient's brother is Father Family history of heart disease in male family member before age 55, Onset Age: 56 Patient's father is Family history of cardiovascular disease, Onset Age: 56 Mother Family history of heart disease in male family member before age 55, Onset Age: 83 Patient's mother is Family history of cardiovascular disease, Onset Age: 83 Social History Social History Smoking status: Never smoker Second hand tobacco smoke exposure: No Alcohol intake: never Substance use: never Additional living arrangements comments: has a caregiver who helps him and takes Gender identity (if verbalized by the patient): Male Sexual Orientation (if Verbalized by the Patient): Straight or Heterosexual Spiritual care concerns: No Exam Narrative: General appearance: Well-developed, well
--- NOTE | 2021-04-28 15:28 | PC.NURSE ---
assistance x2 for patient to stand from bed and void.
[2021-04-28 15:35] LABS: Basophils Percent Auto 0.5 % (0.2-1.2); Eosinophils Absolute Auto 0.1 K/mm3 (0-0.3); Eosinophils Percent Auto 1.6 % (0-4.4); Hematocrit 39.8 % (42.0-52.0); Hemoglobin 13.2 g/dL (14.0-18.0); Immature Granulocyte Percent A 1.2 % (0-0.5); Lymphocytes Absolute Auto 1.02 K/mm3 (0.9-3.2); Lymphocytes Percent Auto 12.7 % (18.3-44.2); Mean Corpuscular HGB Conc 33.2 g/dl (32-36); Mean Corpuscular Hemoglobin 34.2 pg (26-34); Mean Corpuscular Volume 103.1 fl (80-100); Mean Platelet Volume 10.6 fl (7.4-10.4); Monocytes Absolute Auto 1.2 K/mm3 (0.1-0.6); Monocytes Percent Auto 14.8 % (2.6-8.5); Neutrophils Absolute Auto 5.6 K/mm3 (1.3-6.7); Neutrophils Percent Auto 69.2 % (45.5-73.1); Platelet Count Result 92 k/mm3 (150-375); Red Blood Count 3.86 M/mm3 (4.6-6.20); Red Cell Distribution Width 14.2 % (11.5-14.5)
[2021-04-28 15:43] LABS: Add Urine Microscopic? YES; Appearance Urine Clear (Clear); Bilirubin Urine Negative (Negative); Blood Urine Negative (Negative); Color Urine Yellow (Yellow); Glucose Urine UA Negative (Negative); Ketones Urine Negative (Negative); Leukocyte Esterase Ur Negative LEU/UL (Negative); Mucus Urine Rare /lpf; Nitrate Urine Negative (Negative); Protein Urine Negative (Negative); RBC Urine 0-2 /hpf (0-2); Specific Grav Ur 1.017 (1.001-1.035); Urobilinogen Urine Negative mg/dL (<2.0)
[2021-04-28 15:44] LABS: Partial Thromboplastin Time 27.9 SECONDS (22.3-36.8)
[2021-04-28 15:47] LABS: Alanine Aminotransferase 94 U/L (4-50); Albumin Level 3.8 g/dL (3.5-5.1); Alkaline Phosphatase 633 U/L (38-126); Anion Gap 7 mmol/L (8-16); Aspartate Amino Transferase 99 U/L (17-59); Bilirubin,Total 1.4 mg/dL (0.2-1.3); Blood Urea Nitrogen 23 mg/dL (9-20); Carbon Dioxide 27 mmol/L (22-30); Chloride 105 mmol/L (98-107); Estimated CRCL calculation 37 ml/min; Estimated Glomerular Filt Rate 58; Glucose 111 mg/dL (65-110); Potassium 4.1 mmol/L (3.4-5.0); Sodium 139 mmol/L (137-145)
--- NOTE | 2021-04-28 15:58 | PM.IMHP ---
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 He has a very good historian. He is reports having on and off dizziness and lightheadedness since past 2 weeks which has progressively gotten worse. He lives by himself and ambulates around with a Rollator that he has at home. He has been fairly healthy all his life until he was diagnosed with coronary artery disease last November for which he was transferred to [facility] and was planning to have bypass surgery however was later attempted for PCI. He has been on dual antiplatelet therapy along with statin since then. He denies any shortness of breath or chest pain. He denies any dark stool or blood in his stool. For his ongoing dizziness he went to see his regular physician few days ago rotator routine blood test. He was noted to have elevated liver enzymes predominantly alkaline phosphatase which was not 653 range. Back in December 2020 all of these number is was normal. For this he had an ultrasound of the abdomen done. This showed pancreatic head and body are normal in appearance. The pancreatic tail is not visualized. There is heterogenous liver echogenicity with possibility of focal masses largest measuring 3.5 cm. The liver contour is nodular in appearance suspicious for cirrhosis. There is no evidence of intrahepatic biliary duct delayed dilation. Portal venous flow was seen in the hepatopetal, normal direction and has normal Doppler waveform. No right-sided hydronephrosis. Common bile duct measures 5 mm which is normal. There are multiple gallstones. Gallbladder is only mildly distended. There is gallbladder wall thickening measuring about 5 mm which is nonspecific given the suspected liver disease and also without sonographic Zapata sign. No pericholecystic fluid. He was scheduled to see quality assurance tech as well as have an MRI of the abdomen. He also had other blood tests to go for and hence went to [facility] this morning when he was noted to have dragging his right side of his leg and hence brought him to the ER for evaluation. He denies any injury to his head or any other bony injuries. His of recurrent falls over the past 2 weeks he reports having bruises all over his body. In the ED is vitals were stable CT scan of the head showed no acute abnormality. His initial troponin was elevated at 0.677. His EKG showed nonspecific ST-T changes in the anteroseptal leads. Chest x-ray showed mild airspace opacities in the right mid lung zone consistent with atelectasis/scarring versus pneumonia. He is getting admitted for further evaluation and management. Review of Systems Review of Systems: - CONSTITUTIONAL: Reports weight loss 7 kilos since past 3 months, denies fever and chills. - HEENT: Denies changes in vision and hearing - RESPIRATORY: Denies SOB and cough. - CV: Denies palpitations and CP. - GI: Denies abdominal pain, nausea, vomiting and diarrhea. - : Denies dysuria and urinary frequency. - MSK: Denies myalgia and joint pain. - SKIN: Denies rash and pruritus. - NEUROLOGICAL: Denies headache and syncope. Reports dizziness and lightheadedness - PSYCHIATRIC: Denies recent changes in mood. Denies anxiety and depression. All systems reviewed & are unremarkable except as noted in HPI and below Constitutional: Constitutional: Reports fatigue and Reports weakness Neurologic: Reports weakness Endocrine: Endocrine: Reports fatigue [facility] Past Medical History Medical History Impaired glucose tolerance Rotator cuff rupture Surgical History Surgical History H/O cataract removal with insertion of prosthetic lens H/O colonoscopy Hx of hernia repair Hx of christiano
[2021-04-28 16:00] LABS: Troponin I 0.677 ng/mL (0.000-0.034)
--- NOTE | 2021-04-28 16:27 | PC.NURSE ---
ammunition storekeeper order pt room tray at [id number]
--- NOTE | 2021-04-28 17:15 | PC.NURSE ---
assistant community manager delivered room tray to pt. Pt is sitting up and eating at this time
[2021-04-28 18:06] LABS: Erythrocyte Sedimentation Rate 9 mm/hr (0-20)
[2021-04-28 19:29] LABS: Ammonia < 9 umol/L (9-30)
[2021-04-28 19:44] LABS: Hepatitis C Virus Antibody Negative (Negative)
[2021-04-28 19:45] LABS: CRP 1.6 mg/dL (<1.0)
[2021-04-28 20:00] LABS: Acetaminophen < 10 ug/mL (10-30)
--- NOTE | 2021-04-28 20:09 | PC.NURSE ---
This patient, Mamadou Nielsen, was admitted to IMU Room 200-01 at 2005. Patient/family oriented to hospital policies and general routines including ID bracelet, bed and alarms, visiting hours, pain management, procedures, bathroom and other care routines, personal items, smoking policy, room service/diet, and visiting hours. Information on how to activate the Rapid Response Team has been discussed. Patient/Family are encouraged to report perceived risks to care and to ask questions if they do not understand what they are told or what they should do.
[2021-04-28 20:28] LABS: HIV 1/2 Ab P24 Ag Result Negative (Negative)
[2021-04-28 20:47] LABS: Troponin I 0.625 ng/mL (0.000-0.034)
[2021-04-28 20:51] LABS: Folic Acid > 20.0 ng/mL (2.76->20); Vitamin B12 > 1000.0 pg/mL (239-931)
[2021-04-28 22:25] LABS: Troponin I 0.613 ng/mL (0.000-0.034)
[2021-04-28 23:18] LABS: HAV RESULT Negative (Negative); Hepatitis B Core IgM Result Negative (Negative); Hepatitis B Surface Antigen Negative (Negative)
[2021-04-29] VITALS (13 sets, daily range): BP systolic 92–123; BP diastolic 54–63; PULSE 76–109; RESP 16–22; TEMP 36–37.2; O2SAT 96–100
--- NOTE | 2021-04-29 | ECHO_ITS ---
Patient Info Name: Mamadou Nielsen Age: 80 years : 1940 Gender: Male Ht: 68 in Wt: 133 lbs BSA: 1.70 m2 HR: 97 bpm BP: 123 / 60 mmHg Heart Rhythm: Sinus Rhythm Exam Date: 04/29/2021 8:00 AM Exam Location: [facility] Patient Status: Inpatient Admit Date: 04/28/2021 Staff Ordering Physician: Ean Carrera MD Country Director: Yovanny Zapata, LORENZA, RT Attending Provider: Ean Carrera MD Exam Type: CA echo dop color flow w con Study Info Indications I50.9 - Heart failure, unspecified Complete two-dimensional, color flow and Doppler transthoracic echocardiogram is performed with contrast to opacify the left ventricle and to improve the deliniation of the left ventricle endocardial borders. Strain analysis performed. Summary 1. The apical septum, apical cap, basal inferior wall, mid inferoseptal, basal inferolateral wall, and mid inferolateral wall are akinetic. 2. The anterior wall, anteroseptal wall, apical inferior wall, and mid inferior wall are hypokinetic. 3. Left ventricular chamber dimension is normal. 4. Left ventricular systolic function is severely reduced, estimated at 30-35%. 5. There is mildly increased left ventricular wall thickness. 6. The left ventricular diastolic function is grade III diastolic dysfunction. 7. Global longitudinal strain is abnormal at -9 %. 8. Left atrial chamber dimension is mildly enlarged. 9. There is mild aortic valve regurgitation. 10. There is mild mitral valve regurgitation. 11. There is mild tricuspid valve regurgitation. 12. The aortic root size at the sinus of Valsalva is mildly dilated. 13. Complete two-dimensional, color flow and Doppler transthoracic echocardiogram is performed with contrast to opacify the left ventricle and to improve the deliniation of the left ventricle endocardial borders. 14. Strain analysis performed. Left Ventricle Left ventricular chamber dimension is normal. Left ventricular systolic function is severely reduced, estimated at 30-35%. There is mildly increased left ventricular wall thickness. The left ventricular diastolic function is grade III diastolic dysfunction. Global longitudinal strain is abnormal at -9 %. The apical septum, apical cap, basal inferior wall, mid inferoseptal, basal inferolateral wall, and mid inferolateral wall are akinetic. The anterior wall, anteroseptal wall, apical inferior wall, and mid inferior wall are hypokinetic. All other borja appear normal. Right Ventricle Right ventricular chamber dimension is normal. Right ventricular systolic function is normal. Left Atria Left atrial chamber dimension is mildly enlarged. Right Atria Right atrial chamber dimension is normal. Atrial Septum Intact interatrial septum visualized by color flow imaging. Aortic Valve The aortic valve is trileaflet. There is moderate aortic valve sclerosis. There is no aortic valve stenosis. There is mild aortic valve regurgitation. There is mild aortic valve calcification. Pulmonic Valve The pulmonic valve is normal. There is no pulmonic valve stenosis. There is trace pulmonic regurgitation. Mitral Valve The mitral valve has calcified annulus. There is no mitral valve stenosis. There is mild mitral valve regurgitation. Tricuspid Valve The tricuspid valve leaflets are normal. There is no significant tricuspid valve stenosis. There is mild tricuspid valve regurgitation. Pericardium/Pleural The pericardium appears normal. There is trivial peric
[2021-04-29] MEDS: PERFLUTREN LIPID MICROSPHERES 1.5 ML VIAL DILUTED TO 10 ML TOTAL VOLUME IV PUSH (08:12)
--- NOTE | 2021-04-29 08:12 | IVDEFINITY ---
Prior to administration of IV Definity the patient was educated on the risks and benefits of the imaging enhancing agent including potential adverse side effects. The patient verbalized understanding. Allergies were verified. No exclusion criteria were identified and at least one of the following inclusion criteria were met: 1) physician request, 2) patient technically difficult to image (per the [place] [employer]ocardi[employer] guidelines of two or more segments not discernable within the apical view), or 3) questionable left ventricular function. ?
--- NOTE | 2021-04-29 09:01 | PCOTNOTE ---
Attempted OT Evaluation, patient currently has active bedrest orders, unable to complete evaluation at this time. Will follow and attempt at later time.
[2021-04-29 09:09] LABS: Glucose Point of Care 100 mg/dl (65-105)
[2021-04-29] MEDS: CLOPIDOGREL BISULFATE 75 MG TABLET PO (09:23)
[2021-04-29] MEDS: ASPIRIN 81 MG ENTERIC TABLET PO (09:23)
[2021-04-29] MEDS: METOPROLOL SUCCINATE EXT REL 25 MG TABCR PO (09:24)
--- NOTE | 2021-04-29 09:53 | PM.CNCAR ---
Assessment and Plan Assessment and plan (1) Atherosclerotic heart disease of [place] coronary artery with angina pectoris: Code(s): I25.119 - Atherosclerotic heart disease of [place] coronary artery with unspecified angina pectoris Status: Acute Assessment and Plan: Continue dual anti-platelet therapy, metoprolol, lisinopril. No further cardiac workup needed at this point (2) Elevated troponin: Code(s): R77.8 - Other specified abnormalities of plasma proteins Status: Acute Assessment and Plan: Not related to acute plaque rupture. Probably secondary to his fall +/-underlying renal insufficiency or chronic systolic heart failure (3) Abnormal abdominal ultrasound: Code(s): R93.5 - Abnormal findings on diagnostic imaging of other abdominal regions, including retroperitoneum Status: Acute Assessment and Plan: Concerning for liver metastasis (4) At risk for falls: Code(s): Z91.81 - History of falling Status: Acute Assessment and Plan: Simply lost his balance and fell yesterday. MRI pending because of the perceived right side is. History of Present Illness History of Present Illness Consult date/time: 04/29/21 09:53 Requesting physician: Ean Carrera MD Consult reason: Other (Elevated troponin) Reason For Visit: CVA, elevated troponin, elevated liver enzyme Narrative: Date of service 04/29/2021 Reason consultation: Elevated troponin Requesting provider: Dr. Carrera History patient is an 80-year-old male who follows with Dr. Decker as an outpatient. He does have known coronary disease and in November 2020 was found have a totally occluded mid LAD, high-grade stenosis of a small mid circumflex with an inability to pass the wire, totally occluded distal RCA and 2 high-grade stenosis in the proximal and mid RCA status post PCI. He also has a and ischemic cardiomyopathy ejection fraction of 15-20% by echocardiogram and 2020. Came to hospital because of a fall and some perceived right-sided weakness. Patient states that he was moving a chair he lost his balance and fell. When his caregiver he assisted in getting him up and going to the bathroom there were was a thought that he had some right-sided weakness. Came to the hospital for further workup and evaluation. The process of workup, a troponin was drawn which was elevated. The next 2 troponins are also still elevated but no significant rise or fall. He has been found to have elevated at liver enzymes and a CT scan shows extensive nodularities/? Metastasis of the liver. CT scan of brain shows no acute lesions but MRI is pending. He denies any chest pain, shortness of breath, syncope, presyncope, paroxysmal nocturnal dyspnea, orthopnea, edema or palpitations. Review of Systems Review of Systems: All systems reviewed & are unremarkable except as noted in HPI and below Constitutional: Constitutional: Denies weakness Eyes: Eyes: Denies blurry vision ENT: Reports Normal hearing present Cardiovascular: Cardiovascular: Denies chest pain Respiratory: Respiratory: Denies dyspnea Gastrointestinal: Gastrointestinal: Denies abdominal pain Genitourinary: Genitourinary: Denies dysuria Musculoskeletal: Musculoskeletal: Denies neck pain Integumentary/Breasts: Skin/Breast: Denies dry skin Neurologic: Denies headache(s) Psychiatric: Psychiatric: Denies anxiety Endocrine: Endocrine: Denies fatigue Hematologic/Lymphatic: Hematologic/Lymphatic: Denies easy bleeding Allergic/Immunologic: Allergic/Immunologic: Denies GI upset with certain foods PMFSH Past Medical History Medical History Impaired glucose tolerance Rotator cuff rupture Surgical History Surgical History H/O cataract removal with insertion of prosthetic lens H/O colonoscopy Hx of hernia repair Hx of laminectomy Hx of lith
--- NOTE | 2021-04-29 12:05 | WPDNEURCNPN ---
Assessment and Plan Additional Plan 1. Gait dysfunction obtain the MRI to rule out the possibility of posterior fossa lesion 2. Early neuropathy plan as ordered Consult date: 04/29/21 HPI: Mamadou Nielsen is a 80 year old male admitted to the hospital for the complaints of dizziness and fall he presented to Emergency Room Department with account development associate subsequent to fall and complaints of weakness particularly on the right side of his body he has been experiencing dizziness and lightheadedness off and on for the last couple of weeks which was progressively getting worse though he lives alone by himself and ambulates around with a Rollator but he was fairly well up until he was diagnosed with coronary artery disease lost November for he which he was transferred to [facility] and was planning to have the bypass surgery however later attempted for PCI he has been on dual antiplatelet therapy along with statin since then gives no history of shortness of breath or pain in chest he has seen his regular physician few days ago for the ongoing complaints of dizziness when he was found to have elevated hepatic enzymes with alkaline phosphatase of 653 though all these numbers were normal in December 2020 he had an ultrasound of the abdomen which revealed normal pancreas to the tail of pancreas was not visualize he was found to heterogeneous hepatic echogenicity with possibility of focal masses largest measuring 3.5cm and the liver contour was nodular in appearance suspicious for cirrhosis there was no intrahepatic biliary duct delayed dilatation he was not found to have hydronephrosis common bile duct was 5mm within normal range though he had multiple gallstones the CT scan of the head in the emergency room was negative troponins were 0.67 7, he does have ongoing history of impaired glucose tolerance rotator cuff repair sugar, laminectomy, he is not alcohol drinker substance user or smoker and home medications included the pain medications and atorvastatin 40 mg daily tablet half a tablet daily, initial blood workup was normal except total bilirubin of 1.4 AST 99 ALT 94 and alkaline phosphate of 633 Review of Systems Review of Systems: All systems reviewed & are unremarkable except as noted in HPI and below PMFSH Past Medical History Medical History Impaired glucose tolerance Rotator cuff rupture Surgical History Surgical History H/O cataract removal with insertion of prosthetic lens H/O colonoscopy Hx of hernia repair Hx of laminectomy Hx of lithotripsy Status post lateral meniscal repair Family History Family History Sibling Family history of Parkinson's disease, Onset Age: 81 Patient's brother is Father Family history of heart disease in male family member before age 55, Onset Age: 56 Patient's father is Family history of cardiovascular disease, Onset Age: 56 Mother Family history of heart disease in male family member before age 55, Onset Age: 83 Patient's mother is Family history of cardiovascular disease, Onset Age: 83 Social History Social History Smoking status: Never smoker Second hand tobacco smoke exposure: No Alcohol intake: former Substance use: never Substance use type: does not use Additional living arrangements comments: has a caregiver who helps him and takes Gender identity (if verbalized by the patient): Male Sexual Orientation (if Verbalized by the Patient): Straight or Heterosexual Spiritual care concerns: No Meds Home Medications and Allergies Home Medications Medication Instructions Recorded Confirmed Type calcium carbonate 600 mg calcium 600 mg PO DAILY 03/14/19 04/28/21 History (1,500 mg) tablet cholecalciferol (v
[2021-04-29 12:48] LABS: Glucose Point of Care 166 mg/dl (65-105)
[2021-04-29] MEDS: ARTIFICIAL TEARS OPHTH SOLN 15 ML BOTTLE 1 DROP EACH EYE (15:12)
--- NOTE | 2021-04-29 17:15 | WPDGICN ---
Assessment and Plan Assessment and plan (1) Abnormal liver enzymes: Code(s): R74.8 - Abnormal levels of other serum enzymes Status: Acute Assessment and Plan: noted new finding of abnormal liver enzymes, he denies previous history of liver disease, no alcohol use. ultrasound could not rule out initially cirrhosis but CT scan is most consistent with metastatic disease in liver which could explain abnormal blood work, of course we can not rule out underlying liver dysfunction since he also has thrombocytopenia. recommend to consult oncology, may need biopsy ? primary- he had colonoscopy about 4 years ago and denies upper gi symptoms. (2) Liver lesion: Code(s): K76.9 - Liver disease, unspecified Status: Acute Assessment and Plan: ask oncology to see hepatitis panel negative (3) Elevated troponin: Code(s): R77.8 - Other specified abnormalities of plasma proteins Status: Acute Assessment and Plan: flat troponins, cardiology on board (4) Weight loss: Code(s): R63.4 - Abnormal weight loss Status: Acute Assessment and Plan: he noted also weight loss last few weeks (5) Thrombocytopenia, unspecified: Code(s): D69.6 - Thrombocytopenia, unspecified Status: Acute (6) Fall: Code(s): W19.XXXA - Unspecified fall, initial encounter Status: Acute Assessment and Plan: neurology on board GI Consult Note Consult date/time: 04/29/21 17:15 Reason for consult: elevated liver enzymes, liver lesions by CT scan HPI: Mamadou Nielsen is a 80 year old male with history of CAD s/p PCI on dual antiplatelet therapy along with statin. He came here after had a fall at home. His memory is quite normal and he can tell what has been going on. Last 2 weeks with intermittent dizziness and lightheadedness, he lives by himself and ambulates around with a Rollator, after he fell he called his caregiver. that he has at home. He lost about 15 pounds last few weeks, says that appetite is normal, denies any abdominal pain, no dysphagia, no nausea, no history of liver disease and no alcohol use. He already had several colonoscopies and says that last one about 4 years ago. Blood work revealed elevated liver enzymes with transaminases 80-90 which is a new finding. Abdominal ultrasound revealed heterogeneous liver that could be either cirrhosis or liver mets but then CT scan was obtained which showed extensive hepatic metastases, cholelithiasis, duodenal diverticulum, 1.6 x 1.2 cm right adrenal mass which may be due to adenoma or metastasis, diverticulosis of the colon, prostate enlargement and calcification. Hepatitis panel negative. Platelets also low at 90 with normal albumin. Troponin slightly elevated. Review of Systems Constitutional: Constitutional: Reports weight loss Eyes: Eyes: Reports no additional eye complaints ENT: Reports Normal hearing present Cardiovascular: Cardiovascular: Denies chest pain Respiratory: Respiratory: Denies dyspnea Gastrointestinal: Gastrointestinal: Denies abdominal pain and Denies nausea Genitourinary: Genitourinary: Denies dysuria Musculoskeletal: Musculoskeletal: Denies back pain Integumentary/Breasts: Skin/Breast: Denies dry skin Neurologic: Comments: fall Psychiatric: Psychiatric: Reports no additional psychiatric complaints PMFSH Past Medical History Medical History (Updated 04/29/21 @ 17:26 by Yeison Hudson MD) Abnormal liver enzymes Fall Impaired glucose tolerance Liver lesion Rotator cuff rupture Weight loss Surgical History Surgical History H/O cataract removal with insertion of prosthetic lens H/O colonoscopy Hx of hernia repair Hx of laminectomy Hx of lithotripsy Status post lateral meniscal repair Family History Family History Sibling Family history of Parkinson's diseas
--- NOTE | 2021-04-29 17:35 | PM.IMPN ---
Progress Note: A&P Assessment and Plan (1) Elevated alkaline phosphatase level: Code(s): R74.8 - Abnormal levels of other serum enzymes Status: Acute (2) Hx of CABG: Code(s): Z95.1 - Presence of aortocoronary bypass graft Status: Acute (3) Ventricular bigeminy: Code(s): I49.8 - Other specified cardiac arrhythmias Status: Acute (4) Polyarthritis of multiple sites: Code(s): M13.0 - Polyarthritis, unspecified Status: Acute (5) Atherosclerotic heart disease of [place] coronary artery with angina pectoris: Code(s): I25.119 - Atherosclerotic heart disease of [place] coronary artery with unspecified angina pectoris Status: Acute (6) Hyperlipidemia, unspecified: Code(s): E78.5 - Hyperlipidemia, unspecified Status: Acute (7) Malignant neoplasm of prostate: Code(s): C61 - Malignant neoplasm of prostate Status: Acute (8) Thrombocytopenia, unspecified: Code(s): D69.6 - Thrombocytopenia, unspecified Status: Acute (9) Stage III chronic kidney disease: Code(s): N18.3 - Chronic kidney disease, stage 3 (moderate) Status: Acute Additional Plan # fall with recent history of recurrent falls PT OT to see with transient right-sided weakness. CT head was negative. Will do MRI brain and morning to rule out stroke. # lightheaded and dizziness over past 2 weeks. Check orthostatic vitals. No symptoms of GI blood loss H&H stable. Troponin is elevated however no prior baseline level will get serial troponin. No active chest pain. EKG with nonspecific ST-T changes in anteroseptal leads. # elevated liver enzymes particularly alkaline phosphatase. Will consult GI abdomen ultrasound with heterogenous liver with possible focal masses. He does report weight loss past few months. Will check alpha fetoprotein. Hepatitis profile. Ferritin level. Antimitochondrial antibody. TRINA. Ceruloplasmin. Alpha 1 antitrypsin. ESR CRP. Will also get CT abdomen and pelvis today. May need MRI abdomen for further evaluation. Hold statin # abnormal chest x-ray no signs and symptoms pneumonia. Will get CT chest for further evaluation # elevated troponin get serial cardiac enzymes. Cardiology consultation. # coronary artery disease status post stents November 2020 resume home medication. Cardiac catheterization November 2020 with totally occluded mid LAD high-grade stenosis small left circumflex artery inability to fix, high-grade stenosis proximal and mid RCA status post stenting but RCA distally is totally occluded # ischemic cardiomyopathy: Echo in November 2020 showed severe global left ventricular systolic dysfunction with distal septal and apical akinesis as well as posterior basal aneurysm. Impaired diastolic relaxation grade 1. EF estimated 15-20% mild mitral valve regurgitation. Normal right ventricular systolic pressure. Peak RVSP 25 mm Hg mild tricuspid regurgitation. Will repeat echo to further evaluate his ejection fraction # history of malignant neoplasm of prostate # hyperlipidemia # history of ventricular tachycardia/frequent PVCs/ventricular bigeminy recent Holter monitor with 4% PVC burden. On beta-kris # chronic kidney disease stage 3 # thrombocytopenia chronic unclear etiology # code status full code # disposition: PT OT to see. Lives independently. Uses Rollator to ambulate has a oracle business analyst who comes several times in a week. # DVT prophylaxis: Lovenox 04/29/2021 Interval history: patient was brought to the emergency department after he fell, and was weak, upon arrival patient tropes are elevated patient was seen by Cardiology does not suspect any acute coronary syndrome most likely due to fall and stress, patient does have significant coronary artery disease and history of ischemic cardiomyopathy with ejection fraction of 15-20% repeat cardiac echo showed improvement in his ejection fraction now 30%, patient as elevated liver enzymes and CT sca
[2021-04-29 17:49] LABS: Glucose Point of Care 116 mg/dl (65-105)
[2021-04-30] VITALS (12 sets, daily range): BP systolic 113–117; BP diastolic 60–69; PULSE 77–107; RESP 17–20; TEMP 36.7–36.8; O2SAT 95–100
[2021-04-30] MEDS: OPTI-GEN TAB 1 TABLET PO (08:27)
[2021-04-30] MEDS: METOPROLOL SUCCINATE EXT REL 25 MG TABCR PO (08:28)
[2021-04-30] MEDS: ASPIRIN 81 MG ENTERIC TABLET PO (08:28)
[2021-04-30] MEDS: CLOPIDOGREL BISULFATE 75 MG TABLET PO (08:28)
[2021-04-30] MEDS: lisinopriL 2.5 MG TABLET PO (08:28)
--- NOTE | 2021-04-30 11:25 | PM.PNCARD ---
Progress Note: A&P Assessment and Plan (1) Atherosclerotic heart disease of [place] coronary artery with angina pectoris: Code(s): I25.119 - Atherosclerotic heart disease of [place] coronary artery with unspecified angina pectoris Status: Acute Assessment and Plan: Continue dual anti-platelet therapy, metoprolol, lisinopril. No further cardiac workup needed at this point (2) Elevated troponin: Code(s): R77.8 - Other specified abnormalities of plasma proteins Status: Acute Assessment and Plan: Not related to acute plaque rupture. Probably secondary to his fall +/-underlying renal insufficiency or chronic systolic heart failure (3) Abnormal abdominal ultrasound: Code(s): R93.5 - Abnormal findings on diagnostic imaging of other abdominal regions, including retroperitoneum Status: Acute Assessment and Plan: Concerning for liver metastasis (4) At risk for falls: Code(s): Z91.81 - History of falling Status: Acute Assessment and Plan: Small punctate CVA noted Subjective Date/time seen: 04/30/21 11:25 Interval history: 80-year-old following a fall in possible stroke Date of service 04/30/2021: Has no chest pain or shortness of breath. MRI did show a concern for small punctate acute infarction. Oncology consult does pending Review of Systems Review of Systems: All systems reviewed & are unremarkable except as noted in HPI and below Constitutional: Constitutional: Denies fatigue, Denies headache(s) and Denies weakness Eyes: Eyes: Denies blurry vision ENT: Reports Normal hearing present, Denies headache(s) and Denies neck pain Cardiovascular: Cardiovascular: Denies chest pain and Denies dyspnea Respiratory: Respiratory: Denies dyspnea Gastrointestinal: Gastrointestinal: Denies abdominal pain Genitourinary: Genitourinary: Denies dysuria Musculoskeletal: Musculoskeletal: Denies neck pain Integumentary/Breasts: Skin/Breast: Denies dry skin Neurologic: Reports Normal hearing present, Denies headache(s) and Denies weakness Psychiatric: Psychiatric: Denies anxiety Endocrine: Endocrine: Denies fatigue Hematologic/Lymphatic: Hematologic/Lymphatic: Denies easy bleeding Allergic/Immunologic: Allergic/Immunologic: Denies GI upset with certain foods Exam Narrative: Alert oriented. Appears stated age Const: General: no acute distress HENMT: General nose exam: Normal nares present Eyes: Sclera: sclerae normal Neck: Neck: supple and no JVD Chest: Other: No reproducible chest wall pain to palpation Resp: Auscultation: diminished lung sounds Cardio: Rate: regular rate Rhythm: regular rhythm GI: Auscultation: normal bowel sounds Skin: General skin exam: normal color Neuro: Cranial nerves: Yes Normal hearing present Cognition (Neuro): normal cognition Speech: normal speech Extrem: General: normal to inspection Psych: Mental Status: mental status grossly normal Objective Data Vital Signs Vital Signs: Vital Signs - 24 hr 04/29/21 12:00 04/29/21 16:00 04/29/21 18:00 Temperature 36.6 C 36.8 C Pulse Rate 92 77 81 Respiratory Rate 22 H 22 H Blood Pressure 107/58 L 116/56 L Pulse Oximetry 98 99 04/29/21 20:00 04/29/21 22:00 04/29/21 23:31 Temperature 36.9 C 37.2 C Pulse Rate 80 97 89 Respiratory Rate 20 20 Blood Pressure 99/54 L 92/54 L Pulse Oximetry 96 100 04/29/21 23:36 04/30/21 02:00 04/30/21 04:00 Temperature 36.7 C Pulse Rate 90 94 93 Respiratory Rate 20 20 Blood Pressure 113/69 Pulse Oximetry 100 95 04/30/21 06:00 04/30/21 08:00 04/30/21 08:28 Temperature 36.8 C Pulse Rate 92 87 86 Respiratory Rate 17 Blood Pressure 117/61 Pulse Oximetry 99 04/30/21 08:34 04/30/21 10:00 Temperature Pulse Rate 84 107 H Respiratory Rate Blood Pressure Pulse Oximetry 98 Intake/Output Intake/Output: Intake & Output 04/27/21 04/28/21 04/29/21 04/30/21 23:59 23:
[2021-04-30 12:35] LABS: Glucose Point of Care 172 mg/dl (65-105)
--- NOTE | 2021-04-30 12:55 | PDONCCN ---
HPI - Date of Consult Date/Time: 04/30/21 12:55 Requesting Physician: Ean Carrera MD Primary Care Provider: Jerry Hernandez DO - Consult Narrative Reason for consult: Metastatic disease Narrative: Mamadou Nielsen is a 80 year old male with history of prostate cancer diagnosed in 2008 but did not receive any treatment according to patient description. He was seen at urologist at [facility]. He came into the hospital status post fall and weakness involving the right side of the body. He has been having intermittent lightheadedness and dizziness for last 2 weeks duration. He has lost 10 lb weight in last month. Head CT came back normal. Brain MRI showed punctate acute left centrum semiovale infarction. CT chest abdomen and pelvis showed extensive hepatic metastasis with 1.6 x 1.2 cm right adrenal mass prostatic enlargement with calcification. He denies any bone pain. Denies any abdominal pain. Denies any bleeding. No other new complaints. Review of Systems - Review of Systems All systems reviewed & are unremarkable except as noted in HPI and bel - Neurologic Reports hearing normal, Denies headache(s), Denies weakness [facility] Medical History: Medical History (Last Updated 04/29/21 @ 17:26 by Yeison Hudson MD) Abnormal liver enzymes Fall Impaired glucose tolerance Liver lesion Rotator cuff rupture Weight loss Surgical History: Surgical History (Last Reviewed 04/29/21 @ 12:11 by Shakir Rondon MD) H/O cataract removal with insertion of prosthetic lens H/O colonoscopy Hx of hernia repair Hx of laminectomy Hx of lithotripsy Status post lateral meniscal repair Family History: Family History (Last Reviewed 04/29/21 @ 12:11 by Shakir Rondon MD) Sibling Family history of Parkinson's disease, Onset Age: 81 Patient's brother is Father Family history of heart disease in male family member before age 55, Onset Age: 56 Patient's father is Family history of cardiovascular disease, Onset Age: 56 Mother Family history of heart disease in male family member before age 55, Onset Age: 83 Patient's mother is Family history of cardiovascular disease, Onset Age: 83 - Social History Social History: Social History (Last Reviewed 04/29/21 @ 12:11 by Shakir Rondon MD) Gender Identity: Gender identity (if verbalized by the patient): Male Sexual Orientation: Sexual Orientation (if Verbalized by the Patient): Straight or Heterosexual Alcohol Use: Alcohol intake: former Substance Use: Substance use: never Substance use type: does not use Others: Spiritual care concerns: No Smoking Status: Smoking status: Never smoker Second hand tobacco smoke exposure: No Meds Home Medications Medication Instructions Recorded Confirmed Type calcium carbonate 600 mg calcium 600 mg PO DAILY 03/14/19 04/29/21 History (1,500 mg) tablet cholecalciferol (vitamin D3) 50 2,000 unit PO DAILY 03/14/19 04/29/21 History mcg (2,000 unit) tablet fluticasone propionate 50 1 spray NASAL DAILY PRN #15.8 ml 06/20/20 04/29/21 Rx mcg/actuation nasal spray,suspension vitamin A-vitamin C-vit E-min 1 tablet PO DAILY 12/19/20 04/29/21 History [Ocuvite] aspirin 81 mg tablet,delayed 81 mg PO DAILY 01/27/21 04/29/21 History release clopidogrel 75 mg tablet 75 mg PO DAILY 01/27/21 04/29/21 History lisinopril 2.5 mg tablet 2.5 mg PO DAILY 01/27/21 04/29/21 History metoprolol succinate 25 mg 25 mg PO DAILY 01/27/21 04/29/21 History tablet,extended release 24 hr atorvastatin 40 mg tablet 40 mg PO DAILY tablet 04/28/21 04/29/21 History hydrocodone-acetaminophen 1 tablet PO BID PRN 04/29/21 04/29/21 History loratadine 10 mg PO DAILY 04/29/21 04/29/21 History tramadol 50 mg PO Q6H PRN 04/29/21 04/29/21 History Allergies Allergy/AdvReac Type Severity Reaction Status Date
--- NOTE | 2021-04-30 12:57 | PCCCNOTE ---
On 04/30/21, the student, [Mary eMlgar], provided care and completed [facility] documentation on this patient. I have reviewed the student's documentation and agree with the findings.
[2021-04-30 14:11] LABS: Prostate Specific Antigen 2.6 ng/mL (< OR = 4.0)
--- NOTE | 2021-04-30 15:15 | PC.NURSE ---
This patient, Mamadou Nielsen, was transferred to [[facility] ] on 04/30/21 at 1515. Personal belongings sent with patient. Report given to [Padmini ]. Appropriate documentation sent with patient.
--- NOTE | 2021-04-30 15:24 | PM.IMPN ---
Progress Note: A&P Assessment and Plan (1) Elevated alkaline phosphatase level: Code(s): R74.8 - Abnormal levels of other serum enzymes Status: Acute (2) Hx of CABG: Code(s): Z95.1 - Presence of aortocoronary bypass graft Status: Acute (3) Ventricular bigeminy: Code(s): I49.8 - Other specified cardiac arrhythmias Status: Acute (4) Polyarthritis of multiple sites: Code(s): M13.0 - Polyarthritis, unspecified Status: Acute (5) Atherosclerotic heart disease of [place] coronary artery with angina pectoris: Code(s): I25.119 - Atherosclerotic heart disease of [place] coronary artery with unspecified angina pectoris Status: Acute (6) Hyperlipidemia, unspecified: Code(s): E78.5 - Hyperlipidemia, unspecified Status: Acute (7) Malignant neoplasm of prostate: Code(s): C61 - Malignant neoplasm of prostate Status: Acute (8) Thrombocytopenia, unspecified: Code(s): D69.6 - Thrombocytopenia, unspecified Status: Acute (9) Stage III chronic kidney disease: Code(s): N18.3 - Chronic kidney disease, stage 3 (moderate) Status: Acute Additional Plan # fall with recent history of recurrent falls PT OT to see with transient right-sided weakness. CT head was negative. Will do MRI brain and morning to rule out stroke. # lightheaded and dizziness over past 2 weeks. Check orthostatic vitals. No symptoms of GI blood loss H&H stable. Troponin is elevated however no prior baseline level will get serial troponin. No active chest pain. EKG with nonspecific ST-T changes in anteroseptal leads. # elevated liver enzymes particularly alkaline phosphatase. Will consult GI abdomen ultrasound with heterogenous liver with possible focal masses. He does report weight loss past few months. Will check alpha fetoprotein. Hepatitis profile. Ferritin level. Antimitochondrial antibody. TRINA. Ceruloplasmin. Alpha 1 antitrypsin. ESR CRP. Will also get CT abdomen and pelvis today. May need MRI abdomen for further evaluation. Hold statin # abnormal chest x-ray no signs and symptoms pneumonia. Will get CT chest for further evaluation # elevated troponin get serial cardiac enzymes. Cardiology consultation. # coronary artery disease status post stents November 2020 resume home medication. Cardiac catheterization November 2020 with totally occluded mid LAD high-grade stenosis small left circumflex artery inability to fix, high-grade stenosis proximal and mid RCA status post stenting but RCA distally is totally occluded # ischemic cardiomyopathy: Echo in November 2020 showed severe global left ventricular systolic dysfunction with distal septal and apical akinesis as well as posterior basal aneurysm. Impaired diastolic relaxation grade 1. EF estimated 15-20% mild mitral valve regurgitation. Normal right ventricular systolic pressure. Peak RVSP 25 mm Hg mild tricuspid regurgitation. Will repeat echo to further evaluate his ejection fraction # history of malignant neoplasm of prostate # hyperlipidemia # history of ventricular tachycardia/frequent PVCs/ventricular bigeminy recent Holter monitor with 4% PVC burden. On beta-kris # chronic kidney disease stage 3 # thrombocytopenia chronic unclear etiology # code status full code # disposition: PT OT to see. Lives independently. Uses Rollator to ambulate has a seaming inspector who comes several times in a week. # DVT prophylaxis: Lovenox 04/29/2021 Interval history: patient was brought to the emergency department after he fell, and was weak, upon arrival patient tropes are elevated patient was seen by Cardiology does not suspect any acute coronary syndrome most likely due to fall and stress, patient does have significant coronary artery disease and history of ischemic cardiomyopathy with ejection fraction of 15-20% repeat cardiac echo showed improvement in his ejection fraction now 30%, patient as elevated liver enzymes and CT sca
--- NOTE | 2021-04-30 15:50 | PM.IMPN ---
Progress Note: A&P Assessment and Plan (1) Elevated alkaline phosphatase level: Code(s): R74.8 - Abnormal levels of other serum enzymes Status: Acute Assessment and Plan: 04/29/2021 Interval history: patient was brought to the emergency department after he fell, and was weak, upon arrival patient tropes are elevated patient was seen by Cardiology does not suspect any acute coronary syndrome most likely due to fall and stress, patient does have significant coronary artery disease and history of ischemic cardiomyopathy with ejection fraction of 15-20% repeat cardiac echo showed improvement in his ejection fraction now 30%, patient as elevated liver enzymes and CT scan of abdomen showed extensive hepatic metastasis will consult oncologist for further recommendation, will continue PT OT patient will benefit with acute rehab will continue to monitor. 04/30/2021 Interval history: been seen in the incidental finding liver mass seen by oncologist recommending biopsy however patient has severe ischemic cardiomyopathy and coronary artery disease patient is on Plavix which needs to be hold for 5 days prior to the procedure, will discuss with Cardiology and further recommendation to follow. patient remains clinically stable, has no new complaints and his caregiver is present in the room (2) Hx of CABG: Code(s): Z95.1 - Presence of aortocoronary bypass graft Status: Acute (3) Ventricular bigeminy: Code(s): I49.8 - Other specified cardiac arrhythmias Status: Acute (4) Polyarthritis of multiple sites: Code(s): M13.0 - Polyarthritis, unspecified Status: Acute (5) Atherosclerotic heart disease of [place] coronary artery with angina pectoris: Code(s): I25.119 - Atherosclerotic heart disease of [place] coronary artery with unspecified angina pectoris Status: Acute (6) Hyperlipidemia, unspecified: Code(s): E78.5 - Hyperlipidemia, unspecified Status: Acute (7) Malignant neoplasm of prostate: Code(s): C61 - Malignant neoplasm of prostate Status: Acute (8) Thrombocytopenia, unspecified: Code(s): D69.6 - Thrombocytopenia, unspecified Status: Acute (9) Stage III chronic kidney disease: Code(s): N18.3 - Chronic kidney disease, stage 3 (moderate) Status: Acute Subjective Date/time seen: 04/30/21 15:50 04/29/2021 Interval history: patient was brought to the emergency department after he fell, and was weak, upon arrival patient tropes are elevated patient was seen by Cardiology does not suspect any acute coronary syndrome most likely due to fall and stress, patient does have significant coronary artery disease and history of ischemic cardiomyopathy with ejection fraction of 15-20% repeat cardiac echo showed improvement in his ejection fraction now 30%, patient as elevated liver enzymes and CT scan of abdomen showed extensive hepatic metastasis will consult oncologist for further recommendation, will continue PT OT patient will benefit with acute rehab will continue to monitor. 04/30/2021 Interval history: been seen in the incidental finding liver mass seen by oncologist recommending biopsy however patient has severe ischemic cardiomyopathy and coronary artery disease patient is on Plavix which needs to be hold for 5 days prior to the procedure, will discuss with Cardiology and further recommendation to follow. patient remains clinically stable, has no new complaints and his caregiver is present in the room Review of Systems Review of Systems: All systems reviewed & are unremarkable except as noted in HPI and below Exam Narrative: Patient is comfortable, NAD HEENT: eyes are clear and none icteric LUNGS: normal respiratory effort ABD: nondistended Lower extremities: no edema SKIN: nonjaundiced Neuro: grossly intact. Objective Data Vital Signs Vital Signs: Vital Signs - 24 hr 04/29/21 16:00 04/29/21 18:00 04/29/21 20:00 Tempera
--- NOTE | 2021-04-30 16:14 | WPDGIPROGNO ---
Progress Note: A&P Assessment and Plan (1) Abnormal liver enzymes: Code(s): R74.8 - Abnormal levels of other serum enzymes Status: Acute Assessment and Plan: liver enzymes stable and this is probably from metastasis in liver- patient will need liver biopsy but noted that he is on plavix that will need to discontinue pending psa level oncology on board (2) Liver lesion: Code(s): K76.9 - Liver disease, unspecified Status: Acute Assessment and Plan: probably metastasis, less likely cirrhosis no previous history of liver disease (3) Weight loss: Code(s): R63.4 - Abnormal weight loss Status: Acute (4) Atherosclerotic heart disease of [place] coronary artery with angina pectoris: Code(s): I25.119 - Atherosclerotic heart disease of [place] coronary artery with unspecified angina pectoris Status: Acute Assessment and Plan: flat troponin and no need of further work up per cardiology (5) Fall: Code(s): W19.XXXA - Unspecified fall, initial encounter Status: Acute Subjective Date/time seen: 04/30/21 16:14 Interval history: he is doing well, no new issues. Family at bedside. Review of Systems Review of Systems: All systems reviewed & are unremarkable except as noted in HPI and below Exam Const: General: comfortable and no acute distress Other: pleasant elderly HENMT: General nose exam: Normal nares present Eyes: General: appearance normal, both eyes and all related structures Neck: Neck: no JVD Resp: Auscultation: clear to auscultation bilaterally Cardio: Rate: regular rate Rhythm: regular rhythm GI: Inspection: non-distended GI Palp: Yes Soft to palpation and No Guarding due to palpation present (GI) Auscultation: normal bowel sounds Skin: General skin exam: normal color Neuro: Speech: normal speech Extrem: General: normal to inspection Psych: Mental Status: mental status grossly normal Objective Data Vital Signs Vital Signs: Vital Signs - 24 hr 04/29/21 18:00 04/29/21 20:00 04/29/21 22:00 Temperature 98.4 F Pulse Rate 81 80 97 Respiratory Rate 20 Blood Pressure 99/54 L Pulse Oximetry 96 04/29/21 23:31 04/29/21 23:36 04/30/21 02:00 Temperature 98.9 F Pulse Rate 89 90 94 Respiratory Rate 20 20 Blood Pressure 92/54 L Pulse Oximetry 100 100 04/30/21 04:00 04/30/21 06:00 04/30/21 08:00 Temperature 98.1 F 98.2 F Pulse Rate 93 92 87 Respiratory Rate 20 17 Blood Pressure 113/69 117/61 Pulse Oximetry 95 99 04/30/21 08:28 04/30/21 08:34 04/30/21 10:00 Temperature Pulse Rate 86 84 107 H Respiratory Rate Blood Pressure Pulse Oximetry 98 04/30/21 12:00 04/30/21 15:26 Temperature 98.0 F Pulse Rate 95 79 Respiratory Rate 18 Blood Pressure 115/60 Pulse Oximetry 99 Intake/Output Intake/Output: Intake & Output 04/27/21 04/28/21 04/29/21 04/30/21 23:59 23:59 23:59 23:59 Intake Total 1080 600 Output Total 500 150 Balance 580 450 Meds/Results Medications: Active Medications Generic Name Dose Route Start Last Admin Trade Name Freq PRN Reason Stop Dose Admin Artificial Tears 1 drop 04/29/21 14:40 04/29/21 15:12 Artificial Tears Ophth Soln 15 Ml Bottle EACH EYE 1 drop QID PRN Administration Dry Eye(s) Aspirin 81 mg 04/29/21 09:00 04/30/21 08:28 Aspirin 81 Mg Enteric Tablet PO 81 mg QAM GABRIEL Administration Clopidogrel Bisulfate 75 mg 04/29/21 09:00 04/30/21 08:28 Clopidogrel Bisulfate 75 Mg Tablet PO 75 mg QAM GABRIEL Administration Lisinopril 2.5 mg 04/29/21 09:00 04/30/21 08:28 Lisinopril 2.5 Mg Tablet PO 2.5 mg QAM GABRIEL Administration Metoprolol Succinate 25 mg 04/29/21 09:00 04/30/21 08:28 Metoprolol Succinate Ext Rel 25 Mg Tabcr PO 25 mg QAM GABRIEL Administration Multivitamins/Minerals 1 tablet 04/30/21 09:00 04/30/21 08:27 Opti-Gen Tab PO 1 tablet QAM GABRIEL Administration
[2021-04-30] MEDS: ARTIFICIAL TEARS OPHTH SOLN 15 ML BOTTLE 1 DROP EACH EYE (16:23)
[2021-04-30 17:48] LABS: CMV IgG Antibody <0.60 U/mL (<0.60); CMV IgM Antibody <30.00 AU/mL (<30.00)
[2021-05-01 00:03] VITALS: BP 117/58; PULSE 77; RESP 18; TEMP 37.2; O2SAT 98
[2021-05-01 00:05] VITALS: PULSE 73
[2021-05-01 04:04] VITALS: PULSE 76
[2021-05-01 08:00] VITALS: PULSE 98
[2021-05-01 08:35] VITALS: BP 109/61; PULSE 93; RESP 16; TEMP 36.3; O2SAT 98
--- NOTE | 2021-05-01 09:16 | PM.PNCARD ---
Progress Note: A&P Assessment and Plan (1) Atherosclerotic heart disease of [place] coronary artery with angina pectoris: Code(s): I25.119 - Atherosclerotic heart disease of [place] coronary artery with unspecified angina pectoris Status: Acute Assessment and Plan: History of CAD with stents to the RCA in November 2020. Patient to undergo liver biopsy next week - holding ASA and Plavix for 5 days prior to procedure. Full dose lovenox to be administered during this time until 1 day before biopsy. This plan was discussed by Dr. Decker. (2) Elevated troponin: Code(s): R77.8 - Other specified abnormalities of plasma proteins Status: Acute Assessment and Plan: Not related to acute plaque rupture. Probably secondary to his fall +/-underlying renal insufficiency or chronic systolic heart failure (3) Abnormal abdominal ultrasound: Code(s): R93.5 - Abnormal findings on diagnostic imaging of other abdominal regions, including retroperitoneum Status: Acute Assessment and Plan: CT chest abdomen pelvis showed extensive liver metastasis as well as 1.6 x 1.2 cm right adrenal mass. Plan for CT guided biopsy of liver mass. Oncology following. (4) At risk for falls: Code(s): Z91.81 - History of falling Status: Acute Assessment and Plan: Small punctate CVA noted Subjective Date/time seen: 05/01/21 09:16 Interval history: 80-year-old following a fall in possible stroke Date of service 04/30/2021: Has no chest pain or shortness of breath. MRI did show a concern for small punctate acute infarction. Oncology consult does pending Date of service 05/01/2021: He is feeling well today. No complaints. Review of Systems Review of Systems: All systems reviewed & are unremarkable except as noted in HPI and below Constitutional: Constitutional: Denies fatigue, Denies headache(s) and Denies weakness Eyes: Eyes: Denies blurry vision ENT: Reports Normal hearing present, Denies headache(s) and Denies neck pain Cardiovascular: Cardiovascular: Denies chest pain and Denies dyspnea Respiratory: Respiratory: Denies dyspnea Gastrointestinal: Gastrointestinal: Denies abdominal pain Genitourinary: Genitourinary: Denies dysuria Musculoskeletal: Musculoskeletal: Denies neck pain Integumentary/Breasts: Skin/Breast: Denies dry skin Neurologic: Reports Normal hearing present, Denies headache(s) and Denies weakness Psychiatric: Psychiatric: Denies anxiety Endocrine: Endocrine: Denies fatigue Hematologic/Lymphatic: Hematologic/Lymphatic: Denies easy bleeding Allergic/Immunologic: Allergic/Immunologic: Denies GI upset with certain foods Exam Narrative: Alert oriented. Appears stated age Const: General: no acute distress HENMT: General nose exam: Normal nares present Eyes: Sclera: sclerae normal Neck: Neck: supple and no JVD Chest: Other: No reproducible chest wall pain to palpation Resp: Auscultation: diminished lung sounds Cardio: Rate: regular rate Rhythm: regular rhythm GI: Auscultation: normal bowel sounds Skin: General skin exam: normal color Neuro: Cranial nerves: Yes Normal hearing present Cognition (Neuro): normal cognition Speech: normal speech Extrem: General: normal to inspection Psych: Mental Status: mental status grossly normal Objective Data Vital Signs Vital Signs: Vital Signs - 24 hr 04/30/21 10:00 04/30/21 12:00 04/30/21 15:26 Temperature 36.7 C Pulse Rate 107 H 95 79 Respiratory Rate 18 Blood Pressure 115/60 Pulse Oximetry 99 04/30/21 16:00 04/30/21 20:04 04/30/21 20:48 Temperature Pulse Rate 77 80 Respiratory Rate 18 Blood Pressure Pulse Oximetry 99 05/01/21 00:03 05/01/21 00:05 05/01/21 04:04 Temperature 37.2 C Pulse Rate 77 73 76 Respiratory Rate 18 Blood Pressure 117/58 L Pulse Oximetry 98 05/01/21 08:35 Temperature 36.3 C L Pulse Rate 93 Respiratory Rate 1
[2021-05-01 09:45] VITALS: PULSE 93
[2021-05-01] MEDS: OPTI-GEN TAB 1 TABLET PO (09:45)
[2021-05-01] MEDS: METOPROLOL SUCCINATE EXT REL 25 MG TABCR PO (09:45)
[2021-05-01] MEDS: lisinopriL 2.5 MG TABLET PO (09:46)
--- NOTE | 2021-05-01 11:03 | PM.DS ---
DS: Admitting Diagnosis Discharge Date 05/01/2021 Admitting Diagnosis Fall and dizziness DS: Discharge Diagnosis Discharge Diagnosis (1) Elevated alkaline phosphatase level: Code(s): R74.8 - Abnormal levels of other serum enzymes Status: Acute Assessment and Plan: 04/29/2021 Interval history: patient was brought to the emergency department after he fell, and was weak, upon arrival patient tropes are elevated patient was seen by Cardiology does not suspect any acute coronary syndrome most likely due to fall and stress, patient does have significant coronary artery disease and history of ischemic cardiomyopathy with ejection fraction of 15-20% repeat cardiac echo showed improvement in his ejection fraction now 30%, patient as elevated liver enzymes and CT scan of abdomen showed extensive hepatic metastasis will consult oncologist for further recommendation, will continue PT OT patient will benefit with acute rehab will continue to monitor. 04/30/2021 Interval history: been seen in the incidental finding liver mass seen by oncologist recommending biopsy however patient has severe ischemic cardiomyopathy and coronary artery disease patient is on Plavix which needs to be hold for 5 days prior to the procedure, will discuss with Cardiology and further recommendation to follow. patient remains clinically stable, has no new complaints and his caregiver is present in the room (2) Hx of CABG: Code(s): Z95.1 - Presence of aortocoronary bypass graft Status: Acute (3) Ventricular bigeminy: Code(s): I49.8 - Other specified cardiac arrhythmias Status: Acute (4) Polyarthritis of multiple sites: Code(s): M13.0 - Polyarthritis, unspecified Status: Acute (5) Atherosclerotic heart disease of [place] coronary artery with angina pectoris: Code(s): I25.119 - Atherosclerotic heart disease of [place] coronary artery with unspecified angina pectoris Status: Acute (6) Hyperlipidemia, unspecified: Code(s): E78.5 - Hyperlipidemia, unspecified Status: Acute (7) Malignant neoplasm of prostate: Code(s): C61 - Malignant neoplasm of prostate Status: Acute (8) Thrombocytopenia, unspecified: Code(s): D69.6 - Thrombocytopenia, unspecified Status: Acute (9) Stage III chronic kidney disease: Code(s): N18.3 - Chronic kidney disease, stage 3 (moderate) Status: Acute DS: Summary Hospital Course Reason for hospitalization: Chief Complaint: Dizziness and fall Narrative: This is an 80-year-old male who presents to the ED with his appraiser after a fall and weakness noted on the right side of his body. He has a very good historian. He is reports having on and off dizziness and lightheadedness since past 2 weeks which has progressively gotten worse. He lives by himself and ambulates around with a Rollator that he has at home. He has been fairly healthy all his life until he was diagnosed with coronary artery disease last November for which he was transferred to [place] and was planning to have bypass surgery however was later attempted for PCI. He has been on dual antiplatelet therapy along with statin since then. He denies any shortness of breath or chest pain. He denies any dark stool or blood in his stool. For his ongoing dizziness he went to see his regular physician few days ago rotator routine blood test. He was noted to have elevated liver enzymes predominantly alkaline phosphatase which was not 653 range. Back in December 2020 all of these number is was normal. For this he had an ultrasound of the abdomen done. This showed pancreatic head and body are normal in appearance. The pancreatic tail is not visualized. There is heterogenous liver echogenicity with possibility of focal masses largest measuring 3.5 cm. The liver contour is nodular in appearance suspicious for cirrhosis. There is no evidence of intrahepatic biliary duct delayed dilation. Por
--- NOTE | 2021-05-01 13:03 | WPDNEUROPN ---
Subjective Date/time seen: 05/01/21 13:03 gait dysfunction with dizziness and punctate acute left centrum semiovale infarction x-ray chest with mild airspace opacities and thoracic aortic aneurysm with extensive hepatic metastatic disease cholelithiasis right adrenal mass possibly secondary to metastatic an examination consistent with decreased sensation distally in both lower extremities with positive Romberg's again suggestive of underlying neuropathy, discussed with the family that his slitter and rewinder patient would like to go home and needs to be careful about the falls Objective Data Vital Signs Vital Signs: Vital Signs - 24 hr 04/30/21 15:26 04/30/21 16:00 04/30/21 20:04 Temperature 36.7 C Pulse Rate 79 77 80 Respiratory Rate 18 Blood Pressure 115/60 Pulse Oximetry 99 04/30/21 20:48 05/01/21 00:03 05/01/21 00:05 Temperature 37.2 C Pulse Rate 77 73 Respiratory Rate 18 18 Blood Pressure 117/58 L Pulse Oximetry 99 98 05/01/21 04:04 05/01/21 08:00 05/01/21 08:35 Temperature 36.3 C L Pulse Rate 76 98 93 Respiratory Rate 16 Blood Pressure 109/61 Pulse Oximetry 98 05/01/21 09:45 Temperature Pulse Rate 93 Respiratory Rate Blood Pressure Pulse Oximetry Intake/Output Intake/Output: Intake & Output 04/28/21 04/29/21 04/30/21 05/01/21 23:59 23:59 23:59 23:59 Intake Total 1080 1080 315 Output Total 500 450 500 Balance 580 630 -185 Meds/Results Medications: Active Medications Generic Name Dose Route Start Last Admin Trade Name Freq PRN Reason Stop Dose Admin Artificial Tears 1 drop 04/29/21 14:40 04/30/21 16:23 Artificial Tears Ophth Soln 15 Ml Bottle EACH EYE 1 drop QID PRN Administration Dry Eye(s) Aspirin 81 mg 04/29/21 09:00 04/30/21 08:28 Aspirin 81 Mg Enteric Tablet PO 81 mg QAM GABRIEL Administration Clopidogrel Bisulfate 75 mg 04/29/21 09:00 04/30/21 08:28 Clopidogrel Bisulfate 75 Mg Tablet PO 75 mg QAM GABRIEL Administration Lisinopril 2.5 mg 04/29/21 09:00 05/01/21 09:46 Lisinopril 2.5 Mg Tablet PO 2.5 mg QAM GABRIEL Administration Metoprolol Succinate 25 mg 04/29/21 09:00 05/01/21 09:45 Metoprolol Succinate Ext Rel 25 Mg Tabcr PO 25 mg QAM GABRIEL Administration Multivitamins/Minerals 1 tablet 04/30/21 09:00 05/01/21 09:45 Opti-Gen Tab PO 1 tablet QAM GABRIEL Administration Radiology Results: ITS Impressions Head CT 04/28/21 15:05 IMPRESSION: 1. Normal brain. Chest X-Ray 04/28/21 15:08 IMPRESSION: 1. Mild airspace opacities in right midlung zone, consistent with atelectasis/scarring versus pneumonia. Chest/Abdomen/Pelvis CT 04/28/21 17:31 IMPRESSION: Bilateral lower lobe mild dependent atelectasis, mild discoid atelectasis at anterior basilar left lower lobe Thoracic aortic aneurysm Extensive hepatic metastases Cholelithiasis Gallbladder wall thickening, which might be due to chronic or acute cholecystitis Duodenal diverticulum 1.6 x 1.2 cm right adrenal mass which may be due to adenoma or metastasis Right renal cysts Normal appendix Diverticulosis of the colon Prostate enlargement and calcification Brain MRI 04/29/21 14:17 IMPRESSION: Punctate acute left centrum semiovale infarction. Labs Labs: Laboratory Results - last 24 hr 04/28/21 04/28/21 17:17 17:17 Prostate Specific Ag 2.6 CMV IgG Ab <0.60 CMV IgM Ab <30.00 Amg Follow-up Billing Inpatient Follow-up [id number] [facility]
[2021-05-01] MEDS: ENOXAPARIN 60 MG/0.6 ML SYRINGE SUB-Q (13:26)
[2021-05-01 21:36] LABS: Ceruloplasmin 31 mg/dL (18-36)
[2021-05-08 15:04] LABS: Mitochondrial (M2) Ab (IgG) <=20.0
== END 2021-05-01 13:40 | disposition home health service (06) | DRG 65 ==
LOC: ANHED 17:18 → ANHIMU 18:28 → ANH3MED 05-01 07:43 → ANHIMU 05-02 12:49
PROVIDERS: Internal Medicine Hematology & Oncology; Admitting Provider Internal Medicine; Emergency Provider Emergency Medicine; PCP Internal Medicine; Visit Provider Family Medicine
DX: I63.9 Cerebral infarction, unspecified (principal); I50.22 Chronic systolic (congestive) heart failure; C78.7 Secondary malignant neoplasm of liver and intrahepatic bile duct; R74.8 Abnormal levels of other serum enzymes; Z95.1 Presence of aortocoronary bypass graft; I49.8 Other specified cardiac arrhythmias; M13.0 Polyarthritis, unspecified; I25.119 Atherosclerotic heart disease of native coronary artery with unspecified angina pectoris; E78.5 Hyperlipidemia, unspecified; C61 Malignant neoplasm of prostate; D69.6 Thrombocytopenia, unspecified; N18.30 Chronic kidney disease, stage 3 unspecified; W19.XXXA Unspecified fall, initial encounter; Z95.5 Presence of coronary angioplasty implant and graft; Z79.82 Long term (current) use of aspirin; Z79.899 Other long term (current) drug therapy; Z79.891 Long term (current) use of opiate analgesic; Z91.81 History of falling; K76.9 Liver disease, unspecified; R93.5 Abnormal findings on diagnostic imaging of other abdominal regions, including retroperitoneum; R77.8 Other specified abnormalities of plasma proteins; Z82.49 Family history of ischemic heart disease and other diseases of the circulatory system; I25.5 Ischemic cardiomyopathy; Z79.01 Long term (current) use of anticoagulants; R63.4 Abnormal weight loss
CPT/HCPCS: 36415; 70450; 70551; 71045; 71250; 74176; 80053; 80074; 80307; 81001; 82104; 82105; 82140; 82390; 82607; 82728; 82746; 82948; 83520; 84153; 84443; 84484; 85025; 85652; 85730; 86038; 86039; 86140; 86644; 86645; 86703; 93005; 96374; 97110; 97116; 97161; 97165; 97530; 97535; 99285; A9270; C8929; G0378; G0432; J1650; Q9957

== ENCOUNTER 2021-05-06 02:09 | Outpatient (CLI) | payer MEDICARE, SELFPAY ==
[2021-05-02 15:38] VITALS: BMI 19.8
--- NOTE | 2021-05-02 15:52 | PC.NURSE ---
Report to the Outpatient Waiting Room, entrance under the green pavilion located off [facility], at time _9:30AM on date __05/06/21 . OR Time: __11:30AM . - You and your visitor will be asked a series of questions to screen for COVID 19 for your protection. - A mask is required within the hospital. Preoperative COVID Testing Requirements: No COVID Test needed if: (proof is required; if not received patient will have Rapid Test prior to entry) - Patient has received COVID Vaccine at least 14 days prior to procedure date or - Patient has positive COVID test result within last 90 days of surgery date. COVID Test needed if above criteria is not met If not COVID vaccinated a COVID test must be conducted within 72 hours of surgery and patient is asked to isolate self from time of testing until procedure. You will go to the [facility] for your COVID testing. The [facility] is located at the corner of [address] [facility]. You will only be called if COVID results are positive and your surgeon may reschedule your elective surgery date. Patients may have clear liquids (water, carbonated beverages, clear teas, apple juice) until 3 hours prior to surgery with a maximum of 20 ounces. - No food from midnight until time of surgery - Infants may have breast milk until 4 hours before surgery, formula 6 hours prior to surgery. - Children will be allowed to drink immediately following surgery. If applicable, please bring a bottle or sippy cup to assist with drinking. Juice, water, soda, and popsicles are readily available. For infants on formula, please bring formula the day of surgery. Pacifiers are allowed. Take the following medications with a SIP of water the morning of surgery: LISINOPRIL, METOPROLOL, HYDROCODONE Medications to discontinue per physician CURRENTLY HOLDING ELIQUIS & TAKING LOVENOX SQ BID. Date to take last dose__OF LOVENOX IS PM DOSE ON Wednesday05/05/21 Please no make-up, nail pashto, hairspray, perfume, deodorant, or body powder the day of surgery. No jewelry (including any body piercings) or valuables the day of surgery, leave them at home. Please take a shower or bath the night before, or the morning of, surgery with an antibacterial soap. Wear comfortable, loose fitting clothing. Children are encouraged to wear pajamas. - Jewelry must be removed prior to entering the operating room. Rings and piercings that are not removed may be cut off. - The hospital will not accept responsibility for valuables. - Please leave all valuables, including medications, at home the day of surgery. If you are going home after surgery, a licensed pile driver operator helper must drive you home. - NO public transportation without another adult. - We recommend that an adult stay with you for 24 hours following discharge. - We also recommend that you do not drive, make important decision, drink alcoholic beverages, or take any drugs that were not prescribed by your health care provider for at least 24 hours after your discharge time. For Pediatric surgeries, we recommend two adults accompany the child home (only one inside the building at this time). One visitor will be allowed to accompany the patient into the hospital. Patients visitor will be instructed to remain with patient at all times or leave the building. We will allow the visitor to come back to the postoperative area when patient is ready. Follow any additional instructions given to you from your surgeon. Telephone instructions given to __CAREGIVER(JEOVANY) & PATIENT and asked if any additional questions and then verbalized understanding. Patient advised to call surgeon office or pre surgery nurse liaison [phone] if any additional questions.
[2021-05-06] VITALS (10 sets, daily range): BP systolic 88–121; BP diastolic 57–69; PULSE 77–90; RESP 12–18; TEMP 36; O2SAT 95–100; BMI 19.8
--- NOTE | ~2021-05-06 | US_ITS ---
EXAMINATION: US biopsy liver DATE: 05/06/2021 11:44 INDICATION: Liver mass. Malignant neoplasm of prostate. TECHNIQUE: The procedure including the risks, benefits, and alternatives was discussed with the patie nt. Risks discussed included bleeding and infection. The patient understood the risks and agreed to p roceed. The skin overlying the liver was prepped and draped in usual sterile fashion. Anesthetic was administered with 1% lidocaine subcutaneously. An 18 gauge core biopsy needle was then used to obta in 3 core biopsy specimens under continuous sonographic guidance. The entry site was cleaned and dres sed. There were no immediate complications. FINDINGS: Ultrasound images demonstrate the needle in a mass in left hepatic lobe. IMPRESSION: 1. Ultrasound-guided core needle biopsy of a mass in left hepatic lobe. Reviewed, dictated and finalized at location A. OLL MACHINE OPERATOR
[2021-05-06 10:09] LABS: Mean Platelet Volume 10.5 fl (7.4-10.4); Platelet Count Result 122 k/mm3 (150-375)
--- NOTE | 2021-05-06 10:14 | SUR.PREOP ---
1007; RADIOLOGY (U/S) NOTIFIED OF LABWORK SENT
[2021-05-06 10:25] LABS: INR 1.1; Prothrombin Time 13.8 Seconds (11.1-14.7)
--- NOTE | 2021-05-06 15:27 | SUR.PHASEII ---
PER DR MARTINEZ PT IS SAFE TO DISCHARGE
== END 2021-05-06 15:40 | disposition home or self-care (01) ==
PROVIDERS: PCP Internal Medicine; Referring Provider Internal Medicine Hematology & Oncology; Visit Provider Radiology Diagnostic Radiology
PROC: BF45ZZZ Ultrasonography of Liver (ICD-10-PCS; CPT 47000; principal; 2021-05-06 11:30)
DX: C61 Malignant neoplasm of prostate (principal); C78.7 Secondary malignant neoplasm of liver and intrahepatic bile duct
CPT/HCPCS: 36415; 47000; 76942; 85049; 85610; 88307; 88313; 88342

== ENCOUNTER 2021-05-08 12:20 | Emergency (ER) | payer MEDICARE, SELFPAY ==
[2021-05-08] VITALS (9 sets, daily range): BP systolic 109–124; BP diastolic 5–80; PULSE 68–76; RESP 16–26; TEMP 36.6; O2SAT 96–100
--- NOTE | ~2021-05-08 | CT_ITS ---
EXAMINATION: CT brain wo con DATE: 05/08/2021 12:54 INDICATION: Weakness. TECHNIQUE: Computed tomography (CT) of the head was performed without intravenous contrast. The mA wa s adjusted according to patient size. Iterative reconstruction technique was employed. The dose-lengt h product was 681.00 mGy-cm. COMPARISON: Head CT 04/28/2021 FINDINGS: There are scattered areas of low attenuation in the cerebral white matter, which is within normal limits for the patient's age. There is no intracranial hemorrhage, acute infarction, or abnorm al intracranial mass lesion. The ventricles are normal in size. There are likely changes of ocular le ns replacement surgeries. There is mild mucosal thickening in the ethmoid sinuses. There is a trace l eft mastoid effusion. IMPRESSION: 1. Normal aging brain. Reviewed, dictated and finalized at location A. AND DRUG RESEARCH SCIENTIST IMPRESSION: 1. Normal aging brain.
--- NOTE | 2021-05-08 12:28 | ECG_ITS ---
Measurements Intervals [place] Rate: 76 P: 25 [place]: 166 QRS: 48 QRSD: 98 T: 152 QT: 383 QTc: 431 Interpretive Statements SINUS RHYTHM WITH OCCASIONAL VENTRICULAR PREMATURE COMPLEXES LEFT VENTRICULAR HYPERTROPHY AND ST-T CHANGE [VOLTAGE CRITERIA PLUS ST/T ABNORMALITY] INFERIOR MYOCARDIAL INFARCTION, AGE INDETERMINATE INSIGNIFICANT Q-WAVES ANTEROLATERAL LEADS ABNORMAL ECG COMPARED TO ECG 04/28/2021 15:34:15 LEFT VENTRICULAR HYPERTROPHY NOW PRESENT PVCS NOW PRESENT Electronically Signed On 05-08-2021 14:17:39 ADJUNCT INSTRUCTOR IN ECONOMICS by Krishna Farnsworth M.D.
--- NOTE | 2021-05-08 12:28 | ED.WEAKNESS ---
HPI - Weakness General Chief complaint: Weakness Stated complaint: weakness Time Seen by Provider: 05/08/21 12:26 Source: patient Mode of arrival: ambulatory Limitations: no limitations History of Present Illness HPI Narrative: Patient is an 80-year-old male complaining of weakness earlier today fell and hit his head on the floor but now states that he is actually feeling better. Patient states that he has a history of falls due to his unsteady gait. EMS states that they have been to his house multiple times for lift assist due to his history of falls. Patient lives at home and has a caregiver. Patient denies any neck, chest, back, abdomen, pelvis, hip or any extremity pain/injury. Patient was recently admitted more than a week ago for the same complaints, had an extensive work-up including MRI of his head and also was seen by Dr. Rondon, neurology. Related Data Home Medications Medication Instructions Recorded Confirmed calcium carbonate 600 mg calcium 600 mg PO DAILY 03/14/19 05/06/21 (1,500 mg) tablet cholecalciferol (vitamin D3) 50 2,000 unit PO DAILY 03/14/19 05/06/21 mcg (2,000 unit) tablet vitamin A-vitamin C-vit E-min 1 tablet PO DAILY 12/19/20 05/06/21 [Ocutabs] aspirin 81 mg tablet,delayed 81 mg PO DAILY 01/27/21 05/06/21 release clopidogrel 75 mg tablet 75 mg PO DAILY 01/27/21 05/06/21 lisinopril 2.5 mg tablet 2.5 mg PO QAM 01/27/21 05/06/21 metoprolol succinate 25 mg 25 mg PO QAM 01/27/21 05/06/21 tablet,extended release 24 hr hydrocodone-acetaminophen 0.5 tablet PO BID PRN 04/29/21 05/06/21 tramadol 50 mg PO HS 04/29/21 05/06/21 atorvastatin 20 mg PO DAILY 05/02/21 05/06/21 Allergies Allergy/AdvReac Type Severity Reaction Status Date / Time Sulfa (Sulfonamide Allergy Unknown Swelling Verified 05/08/21 12:27 Antibiotics) BEE STINGS Allergy Mild Swelling Uncoded 05/08/21 12:27 Review of Systems Review of Systems: All systems reviewed & are unremarkable except as noted in HPI and below Constitutional: Constitutional: Denies body ache(s), Denies chills, Denies excessive sweating, Denies fatigue, Denies fever(s), Denies headache(s), Denies lethargy, Denies malaise and Denies weight loss Eyes: Eyes: Denies blurry vision, Denies change in vision and Denies loss of vision ENT: Denies dizziness, Denies ear discharge, Denies headache(s), Denies lip swelling, Denies epistaxis, Denies nasal congestion, Denies neck pain, Denies throat swelling and Denies tongue swelling Cardiovascular: Cardiovascular: Denies chest pain, Denies chest pain at rest, Denies chest pain with activity, Denies diaphoresis, Denies rapid heart rate, Denies edema, Denies irregular heart rhythm, Denies lightheadedness, Denies palpitations, Denies dyspnea and Denies dyspnea on exertion Respiratory: Respiratory: Denies chest congestion, Denies cough, Denies hemoptysis, Denies dyspnea and Denies dyspnea on exertion Gastrointestinal: Gastrointestinal: Denies abdominal pain, Denies melena, Denies hematochezia, Denies diarrhea, Denies nausea, Denies vomiting and Denies hematemesis Musculoskeletal: Musculoskeletal: Denies abnormal gait, Denies deformity, Denies joint swelling, Denies limited range of motion, Denies neck pain and Denies numbness Neurologic: Denies Abnormal speech present, Denies abnormal gait, Denies confusion, Denies dizziness, Denies headache(s), Denies focal weakness, Denies loss of vision, Denies numbness, Denies Other visual disturbances and Denies Sensory deficit (Neuro) Psychiatric: Psychiatric: Denies confusion, Denies depression, Denies auditory hallucinations, Denies homicidal ideation and Denies suicidal ideation Endocrine: Endocrine: Denies cold intolerance, Denies excessive sweating, Denies fatigue, Denies heat intolerance and Denies palpitations Hematologic/Lymphatic: Hematologic/Lymphatic: Denies easy bleeding and Denies easy bruising Allergic/Immunologic: Allergic/Immunologic: Denies lip swelling, Denies thro
[2021-05-08 12:40] LABS: Basophils Percent Auto 0.3 % (0.2-1.2); Eosinophils Absolute Auto 0.2 K/mm3 (0-0.3); Eosinophils Percent Auto 1.7 % (0-4.4); Hematocrit 42.3 % (42.0-52.0); Immature Granulocyte Absolute 0.12 K/mm3 (0.00-0.031); Immature Granulocyte Percent A 1.3 % (0-0.5); Immature Platelet Fraction Pct 5.2 % (0.9-11.2); Lymphocytes Absolute Auto 0.93 K/mm3 (0.9-3.2); Lymphocytes Percent Auto 9.9 % (18.3-44.2); Mean Corpuscular HGB Conc 33.1 g/dl (32-36); Mean Corpuscular Hemoglobin 34.4 pg (26-34); Mean Corpuscular Volume 103.9 fl (80-100); Mean Platelet Volume 10.8 fl (7.4-10.4); Monocytes Absolute Auto 1.8 K/mm3 (0.1-0.6); Monocytes Percent Auto 19.2 % (2.6-8.5); Neutrophils Absolute Auto 6.4 K/mm3 (1.3-6.7); Neutrophils Percent Auto 67.6 % (45.5-73.1); Platelet Count Result 128 k/mm3 (150-375); Red Blood Count 4.07 M/mm3 (4.6-6.20); Red Cell Distribution Width 14.4 % (11.5-14.5); White Blood Count 9.4 K/mm3 (4.5-10.0)
[2021-05-08 12:48] LABS: INR 1.1; Prothrombin Time 14.1 Seconds (11.1-14.7)
[2021-05-08 12:53] LABS: Alanine Aminotransferase 85 U/L (4-50); Alkaline Phosphatase 690 U/L (38-126); Anion Gap 7 mmol/L (8-16); Aspartate Amino Transferase 90 U/L (17-59); Bilirubin,Total 1.6 mg/dL (0.2-1.3); Blood Urea Nitrogen 28 mg/dL (9-20); Calcium 9.2 mg/dL (8.4-10.2); Carbon Dioxide 24 mmol/L (22-30); Chloride 103 mmol/L (98-107); Estimated CRCL calculation 38 ml/min; Estimated Glomerular Filt Rate 58; Glucose 102 mg/dL (65-110); Potassium 4.8 mmol/L (3.4-5.0); Sodium 134 mmol/L (137-145)
[2021-05-08 12:56] LABS: Add Urine Microscopic? YES; Appearance Urine Clear (Clear); Bilirubin Urine Negative (Negative); Blood Urine Negative (Negative); Color Urine Yellow (Yellow); Glucose Urine UA Negative (Negative); Ketones Urine Negative (Negative); Leukocyte Esterase Ur Negative LEU/UL (Negative); Nitrate Urine Negative (Negative); Protein Urine Negative (Negative); RBC Urine 0-2 /hpf (0-2); Specific Grav Ur 1.019 (1.001-1.035); Squamous Epithelial Cell Urine Rare /hpf (Few); Urobilinogen Urine Negative mg/dL (<2.0); WBC Urine 0-3 /hpf
[2021-05-08 15:52] LABS: Troponin I 0.073 ng/mL (0.000-0.034)
== END 2021-05-08 16:57 | disposition home or self-care (01) ==
PROVIDERS: Emergency Provider Emergency Medicine; PCP Internal Medicine
DX: R53.1 Weakness (principal); R29.6 Repeated falls; R79.89 Other specified abnormal findings of blood chemistry; Z98.42 Cataract extraction status, left eye; Z98.41 Cataract extraction status, right eye; Z96.1 Presence of intraocular lens; I49.3 Ventricular premature depolarization; I51.7 Cardiomegaly; R94.31 Abnormal electrocardiogram [ECG] [EKG]; Z79.82 Long term (current) use of aspirin
CPT/HCPCS: 36415; 70450; 80053; 81001; 84484; 85025; 85055; 85610; 85730; 93005; 99284

== ENCOUNTER 2021-05-10 02:22 | Observation (INO) | payer MEDICARE, SELFPAY ==
[2021-05-10] VITALS (11 sets, daily range): BP systolic 97–123; BP diastolic 47–67; PULSE 70–114; RESP 16–24; TEMP 36.3–37.3; O2SAT 97–99; BMI 19.8
--- NOTE | ~2021-05-10 | CT_ITS ---
EXAMINATION: CT abdomen pelvis w con DATE: 05/11/2021 12:35 INDICATION: Nausea. TECHNIQUE: Computed tomography (CT) of the abdomen and pelvis was performed with 100 mL Omnipaque 350 intravenous contrast. Automated exposure control and iterative reconstruction technique were employe d. The dose-length product was 333.83 mGy-cm. COMPARISON: CT abdomen and pelvis 04/28/2021 FINDINGS: The visualized portions of the lung bases demonstrate mild atelectasis. There are small ple ural effusions. There is left ventricular enlargement of the heart. There are coronary artery calcifi cations. There are calcifications of aortic valve. No pericardial effusion. There are greater than 20 masses in the liver measuring up to 4.4 cm in right hepatic lobe. The gallbladder is normal in size and filled with gallstones. The spleen is normal. There is a 5.2 x 4.6 cm low-attenuation mass in the tail of the pancreas with involvement of left adrenal gland. There is a 1.4 cm mass in right adrenal gland. There is cortical thinning of the kidneys. There are cysts in the kidneys measuring up to 3.8 cm on the right. There are changes of bilateral inguinal hernia repairs. There are scattered diverti cula in the colon. There are no dilated loops of bowel. The appendix is normal. There is total occlus ion of splenic vein due to the pancreatic mass resulting in gastric varices and paraesophageal varice s. There are scattered masses in the peritoneum measuring up to 2.0 x 1.6 cm. There is trace pelvic a scites. There are no pathologically enlarged lymph nodes. There is thoracolumbar dextroscoliosis and severe spondylosis. IMPRESSION: 1. Pancreatic mass, consistent with primary adenocarcinoma. 2. Liver masses and peritoneal carcinomatosis, consistent with metastatic disease. Liver mass biopsy results are pending. 3. Right adrenal mass, which may be an adenoma or metastatic disease. 4. Small pleural effusions. Reviewed, dictated and finalized at location A. IMPRESSION: 1. Pancreatic mass, consistent with primary adenocarcinoma. 2. Liver masses and peritoneal carcinomatosis, consistent with metastatic disea se. Liver mass biopsy results are pending. 3. Right adrenal mass, which may be an adenoma or metastatic disease. 4. Small pleural effusions.
--- NOTE | ~2021-05-10 | XR_ITS ---
EXAMINATION: XR chest 1V portable DATE: 05/10/2021 02:41 INDICATION: Fall. TECHNIQUE: A single frontal view of the chest was obtained. COMPARISON: Chest single view 04/28/2021, chest CT 04/28/2021 FINDINGS: The chest demonstrates clear lungs without pneumonia, pleural effusion, or pneumothorax. Th e heart size is normal. IMPRESSION: 1. No acute cardiopulmonary disease. Reviewed, dictated and finalized at location A. AVER PICTURE
--- NOTE | ~2021-05-10 | CT_ITS ---
EXAMINATION: CT brain wo con DATE: 05/10/2021 02:47 INDICATION: Confusion. Dizziness. TECHNIQUE: Computed tomography (CT) of the head was performed without intravenous contrast. The mA wa s adjusted according to patient size. Iterative reconstruction technique was employed. The dose-lengt h product was 681.00 mGy-cm. COMPARISON: Head CT 05/08/2021 FINDINGS: There are scattered areas of low attenuation in the cerebral white matter, which is within normal limits for the patient's age. There is no intracranial hemorrhage, acute infarction, or abnorm al intracranial mass lesion. The ventricles are normal in size. There is mild mucosal thickening in t he ethmoid sinuses. There are likely changes of ocular lens replacement surgeries. There is a small l eft mastoid effusion. IMPRESSION: 1. Normal aging brain. Reviewed, dictated and finalized at location A. UNITY ASSISTANT IMPRESSION: 1. Normal aging brain.
--- NOTE | 2021-05-10 02:25 | ECG_ITS ---
Measurements Intervals [place] Rate: 111 P: 47 [place]: 135 QRS: 63 QRSD: 98 T: 0 QT: 198 QTc: 269 Interpretive Statements SINUS TACHYCARDIA POSSIBLE LEFT VENTRICULAR HYPERTROPHY [VOLTAGE CRITERIA PLUS LAE OR QRS WIDENING] INFERIOR MYOCARDIAL INFARCTION , PROBABLY OLD [40+ ms Q WAVE AND/OR ST/T ABNORMALITY IN II/aVF] NONSPECIFIC ST AND T CHANGES COMPARED TO ECG 05/08/2021 12:31:09 SINUS TACHYCARDIA NOW PRESENT Electronically Signed On 05-10-2021 13:17:16 PUNCH MACHINE HAND by Franchesca Hernández M.D.
--- NOTE | 2021-05-10 02:34 | ED.GENADULT ---
HPI - General Adult General Chief complaint: Nausea/Vomiting/Diarrhea Stated complaint: NAUSEA, NOT FEELING WELL Source: RN notes reviewed History of Present Illness HPI narrative: Patient presents emergency department from home via EMS for weakness. Patient states he has been having increased weakness over the past several weeks to the point where he has been unable to get around his home states is been associated with nausea and dry heaves at home as well he denies any fevers or chills, chest pain shortness of breath abdominal pain or diarrhea. The patient states he was recently diagnosed with a liver mass and just had a biopsy done on May 06 but does not have the results yet patient's daughter is present states she has been seen in the patient's house over the past several weeks and he has been having increased weakness to the point where she is having hard caring for him Related Data Home Medications Medication Instructions Recorded Confirmed calcium carbonate 600 mg calcium 600 mg PO DAILY 03/14/19 05/06/21 (1,500 mg) tablet cholecalciferol (vitamin D3) 50 2,000 unit PO DAILY 03/14/19 05/06/21 mcg (2,000 unit) tablet vitamin A-vitamin C-vit E-min 1 tablet PO DAILY 12/19/20 05/06/21 [Ocutabs] aspirin 81 mg tablet,delayed 81 mg PO DAILY 01/27/21 05/06/21 release clopidogrel 75 mg tablet 75 mg PO DAILY 01/27/21 05/06/21 lisinopril 2.5 mg tablet 2.5 mg PO QAM 01/27/21 05/06/21 metoprolol succinate 25 mg 25 mg PO QAM 01/27/21 05/06/21 tablet,extended release 24 hr hydrocodone-acetaminophen 0.5 tablet PO BID PRN 04/29/21 05/06/21 tramadol 50 mg PO HS 04/29/21 05/06/21 atorvastatin 20 mg PO DAILY 05/02/21 05/06/21 Allergies Allergy/AdvReac Type Severity Reaction Status Date / Time Sulfa (Sulfonamide Allergy Unknown Swelling Verified 05/10/21 02:29 Antibiotics) BEE STINGS Allergy Mild Swelling Uncoded 05/10/21 02:29 Review of Systems Review of Systems: Gen.: Denies fevers or chills ENT: Denies congestion Respiratory: Denies shortness of breath or cough CV: Denies chest pain or palpitations GI: Denies abdominal pain reports nausea and dry heaves denies diarrhea denies burning, urgency, frequency or hematuria Musculoskeletal: Denies back pain or muscle pain Neuro: Reports weakness Skin: Denies rash Except as documented, all other systems reviewed and negative [facility] Past Medical History Medical History Abnormal liver enzymes Fall Impaired glucose tolerance Liver lesion Rotator cuff rupture Weight loss Surgical History Surgical History H/O cataract removal with insertion of prosthetic lens H/O colonoscopy Hx of hernia repair Hx of laminectomy Hx of lithotripsy Status post lateral meniscal repair Family History Family History Sibling Family history of Parkinson's disease, Onset Age: 81 Patient's brother is Father Family history of heart disease in male family member before age 55, Onset Age: 56 Patient's father is Family history of cardiovascular disease, Onset Age: 56 Mother Family history of heart disease in male family member before age 55, Onset Age: 83 Patient's mother is Family history of cardiovascular disease, Onset Age: 83 Social History Social History Smoking status: Never smoker Second hand tobacco smoke exposure: No Alcohol intake: former Substance use: never Substance use type: does not use Additional living arrangements comments: CAREGIVER 8-10 HOURS/DAY Gender identity (if verbalized by the patient): Male Sexual Orientation (if Verbalized by the Patient): Straight or Heterosexual Spiritual care concerns: No Exam Narrative: APPEARANCE: No acute distress, nontox
[2021-05-10 02:43] LABS: Basophils Percent Auto 0.4 % (0.2-1.2); Eosinophils Absolute Auto 0.1 K/mm3 (0-0.3); Eosinophils Percent Auto 1.1 % (0-4.4); Hemoglobin 13.2 g/dL (14.0-18.0); Immature Granulocyte Absolute 0.06 K/mm3 (0.00-0.031); Immature Granulocyte Percent A 1.3 % (0-0.5); Immature Platelet Fraction Pct 4.9 % (0.9-11.2); Lymphocytes Absolute Auto 0.23 K/mm3 (0.9-3.2); Mean Corpuscular Hemoglobin 34.5 pg (26-34); Mean Corpuscular Volume 104.4 fl (80-100); Mean Platelet Volume 10.7 fl (7.4-10.4); Monocytes Percent Auto 0.9 % (2.6-8.5); Neutrophils Absolute Auto 4.2 K/mm3 (1.3-6.7); Neutrophils Percent Auto 91.3 % (45.5-73.1); Platelet Count Result 112 k/mm3 (150-375); Red Blood Count 3.83 M/mm3 (4.6-6.20); Red Cell Distribution Width 14.5 % (11.5-14.5); White Blood Count 4.6 K/mm3 (4.5-10.0)
[2021-05-10] MEDS: SODIUM CHLORIDE 0.9% IV 1,000 ML 999 ML IV CONT (02:52)
[2021-05-10 02:53] LABS: INR 1.5; Prothrombin Time 17.1 Seconds (11.1-14.7)
[2021-05-10 02:54] LABS: Partial Thromboplastin Time 26.6 SECONDS (22.3-36.8)
[2021-05-10 02:56] LABS: Alanine Aminotransferase 66 U/L (4-50); Albumin Level 3.2 g/dL (3.5-5.1); Alkaline Phosphatase 720 U/L (38-126); Anion Gap 4 mmol/L (8-16); Aspartate Amino Transferase 75 U/L (17-59); Bilirubin,Total 2.4 mg/dL (0.2-1.3); Blood Urea Nitrogen 25 mg/dL (9-20); Calcium 8.1 mg/dL (8.4-10.2); Carbon Dioxide 25 mmol/L (22-30); Chloride 108 mmol/L (98-107); Estimated CRCL calculation 39 ml/min; Estimated Glomerular Filt Rate > 60; Glucose 105 mg/dL (65-110); Lipase 246 U/L (23-300); Potassium 3.7 mmol/L (3.4-5.0); Sodium 137 mmol/L (137-145)
[2021-05-10 03:38] LABS: Troponin I 0.094 ng/mL (0.000-0.034)
[2021-05-10 04:07] LABS: Add Urine Microscopic? YES; Appearance Urine Cloudy (Clear); Bilirubin Urine Negative (Negative); Blood Urine Negative (Negative); Color Urine Yellow (Yellow); Glucose Urine UA Negative (Negative); Ketones Urine Negative (Negative); Leukocyte Esterase Ur Negative LEU/UL (Negative); Mucus Urine Rare /lpf; Nitrate Urine Negative (Negative); Protein Urine Negative (Negative); RBC Urine 0-2 /hpf (0-2); Specific Grav Ur 1.015 (1.001-1.035); Squamous Epithelial Cell Urine Rare /hpf (Few); Urobilinogen Urine Negative mg/dL (<2.0); WBC Urine 0-3 /hpf
--- NOTE | 2021-05-10 05:51 | PC.NURSE ---
PT AAOX3, ABLE TO ANSWER QUESTIONS APPROPRIATELY. STATED HE WALKS WITH A WALKER AT HOME. STATED CAREGIVER COMES 3-4 TIMES A WEEK TO TAKE CARE OF HIM.
[2021-05-10] MEDS: SODIUM CHLORIDE 0.9% IV 1,000 ML 80 ML IV CONT ×2 (06:07→17:27)
--- NOTE | 2021-05-10 08:50 | PM.IMHP ---
H&P: HPI History of Present Illness Date/Time: 05/10/21 08:50 Chief Complaint: weakness Narrative: Pt is an 80 yo male w/ hx of HTN, CVA, CAD s/p stent placement November 2020, neuropathy, and liver mass s/p biopsy 05/06/21, who presented to the ED yesterday for increasing weakness x several weeks. He was recently admitted for right sided weakness and was found to have acute CVA. He also has elevated LFTs and a recently found liver mass suspicious for metastases that was biopsied 05/06/21. Pt lives alone with a daily jr. java developer. He states he has been unable to get around his home lately and feels he is unable to care for himself and needs to discuss placement. He also reports he had some nausea with dry heaves yesterday, but this has since resolved. Currently he has no complaints and is overall feeling better after receiving IVF in the ED. He denies N/V/D, abd pain, cp/sob. Does have some tingling in his bilateral feet consistent with his chronic neuropathy. He notes generalized weakness, worse on the left side which he states has been chronic x years. No new motor loss or numbness. Still has occasional light headed spells with associated blurry vision which started several weeks ago prior to his CVA diagnosis. Pt is admitted as observation status for placement. Review of Systems Review of Systems: General: Denies fevers, chills, bodyaches, +weight loss Eyes: Denies eye pain, +blurry vision ENT: Denies nasal congestion or sore throat Respiratory: Denies cough or shortness of breath Cardiovascular: Denies chest pain, palpitations, or lower extremity edema Gastrointestinal: Denies abdominal pain, vomiting, or diarrhea Genitourinary: Denies dysuria or urinary frequency Musculoskeletal: Denies back pain or muscle aches Neurological: Denies headache, +paraesthesias Integumentary: Denies rash or other skin lesions Psychiatric: Denies [facility] Past Medical History Medical History (Updated 05/10/21 @ 08:56 by Katie Maldonado PA-C) Abnormal liver enzymes CVA (cerebral vascular accident) Hypertension Liver lesion Peripheral neuropathy Post herpetic neuralgia Weight loss Surgical History Surgical History (Updated 05/10/21 @ 08:53 by Katie Maldonado PA-C) H/O cataract removal with insertion of prosthetic lens H/O colonoscopy History of coronary angioplasty with insertion of stent Hx of hernia repair Hx of laminectomy Hx of lithotripsy Status post lateral meniscal repair Family History Family History Sibling Family history of Parkinson's disease, Onset Age: 81 Patient's brother is Father Family history of heart disease in male family member before age 55, Onset Age: 56 Patient's father is Family history of cardiovascular disease, Onset Age: 56 Mother Family history of heart disease in male family member before age 55, Onset Age: 83 Patient's mother is Family history of cardiovascular disease, Onset Age: 83 Social History Social History (Updated 05/10/21 @ 08:54 by Katie Maldonado PA-C) Social History: JOSE solomon Dao Smoking status: Never smoker Second hand tobacco smoke exposure: No Alcohol intake: never Substance use: never Substance use type: does not use Additional living arrangements comments: CAREGIVER 8-10 HOURS/DAY Gender identity (if verbalized by the patient): Male Sexual Orientation (if Verbalized by the Patient): Straight or Heterosexual Spiritual care concerns: No Meds Home Medications and Allergies Home Medications Medication Instructions Recorded Confirmed Type calcium carbonate 600 mg calcium 600 mg PO DAILY 03/14/19 05/10/21 History (1,500 mg) tablet cholecalciferol (vitamin D3) 50 2,000 unit PO DAILY 03/14/19 05/10/21 History mcg (2,000 unit) tablet fluticasone propionate 50 1 spray NASAL DAILY PRN #15.8 m
[2021-05-10] MEDS: METOPROLOL SUCCINATE EXT REL 25 MG TABCR PO (08:57)
[2021-05-10] MEDS: ATORVASTATIN 20 MG TABLET PO (08:57)
[2021-05-10] MEDS: ASPIRIN 81 MG ENTERIC TABLET PO (08:57)
[2021-05-10] MEDS: CHOLECALCIFEROL 1,000 UNITS TABLET 2000 UNITS PO (08:57)
[2021-05-10] MEDS: CALCIUM CARBONATE (OSCAL) 500 MG TABLET PO (08:57)
[2021-05-10] MEDS: lisinopriL 2.5 MG TABLET PO (08:57)
[2021-05-10] MEDS: OPTI-GEN TAB 1 TABLET PO (08:57)
[2021-05-10] MEDS: CLOPIDOGREL BISULFATE 75 MG TABLET PO (08:57)
[2021-05-10] MEDS: ENOXAPARIN 40 MG/0.4 ML SYRINGE SUB-Q (08:59)
[2021-05-10] MEDS: traMADol HCL (*CRX) 50 MG TABLET PO (20:35)
[2021-05-10] MEDS: ONDANSETRON INJ 4 MG/2 ML VIAL IV PUSH (22:24)
[2021-05-11] VITALS (11 sets, daily range): BP systolic 101–130; BP diastolic 56–58; PULSE 60–89; RESP 16–18; TEMP 35.6–36.7; O2SAT 95–100; BMI 19.8
--- NOTE | 2021-05-11 03:28 | PC.NURSE ---
Daylight Savings Time For Daylight Savings Time Ending in the Fall - Clocks are moved back. For Daylight Savings Time Beginning in the Spring - Clocks are moved ahead. For [facility], the time of change occurs at 0200 hrs. Time is taken from the service observer. This entry on the patient's chart recognizes the change in time reflected during documentation. Example: 2 entries for vital signs may be charted for 0200 hrs.
[2021-05-11 05:45] LABS: Basophils Percent Auto 0.4 % (0.2-1.2); Eosinophils Absolute Auto 0.1 K/mm3 (0-0.3); Eosinophils Percent Auto 1.2 % (0-4.4); Hematocrit 34.9 % (42.0-52.0); Hemoglobin 11.6 g/dL (14.0-18.0); Immature Granulocyte Absolute 0.16 K/mm3 (0.00-0.031); Immature Granulocyte Percent A 1.4 % (0-0.5); Immature Platelet Fraction Pct 5.5 % (0.9-11.2); Lymphocytes Absolute Auto 1.07 K/mm3 (0.9-3.2); Lymphocytes Percent Auto 9.5 % (18.3-44.2); Mean Corpuscular HGB Conc 33.2 g/dl (32-36); Mean Corpuscular Hemoglobin 34.4 pg (26-34); Mean Corpuscular Volume 103.6 fl (80-100); Mean Platelet Volume 11.1 fl (7.4-10.4); Monocytes Absolute Auto 1.5 K/mm3 (0.1-0.6); Monocytes Percent Auto 13.1 % (2.6-8.5); Neutrophils Absolute Auto 8.4 K/mm3 (1.3-6.7); Neutrophils Percent Auto 74.4 % (45.5-73.1); Platelet Count Result 87 k/mm3 (150-375); Red Blood Count 3.37 M/mm3 (4.6-6.20); Red Cell Distribution Width 14.8 % (11.5-14.5); White Blood Count 11.2 K/mm3 (4.5-10.0)
[2021-05-11 05:56] LABS: Alanine Aminotransferase 57 U/L (4-50); Albumin Level 2.7 g/dL (3.5-5.1); Alkaline Phosphatase 536 U/L (38-126); Anion Gap 2 mmol/L (8-16); Aspartate Amino Transferase 70 U/L (17-59); Bilirubin,Total 1.9 mg/dL (0.2-1.3); Blood Urea Nitrogen 28 mg/dL (9-20); Carbon Dioxide 26 mmol/L (22-30); Chloride 105 mmol/L (98-107); Estimated CRCL calculation 36 ml/min; Estimated Glomerular Filt Rate 58; Glucose 87 mg/dL (65-110); Sodium 133 mmol/L (137-145)
[2021-05-11 07:05] LABS: Hemoglobin A1C 5.4 % (<5.7)
[2021-05-11] MEDS: SODIUM CHLORIDE 0.9% IV 1,000 ML 80 ML IV CONT ×2 (08:03→20:41)
[2021-05-11] MEDS: ENOXAPARIN 40 MG/0.4 ML SYRINGE SUB-Q (09:25)
[2021-05-11] MEDS: ASPIRIN 81 MG ENTERIC TABLET PO (09:25)
[2021-05-11] MEDS: OPTI-GEN TAB 1 TABLET PO (09:26)
[2021-05-11] MEDS: CLOPIDOGREL BISULFATE 75 MG TABLET PO (09:26)
[2021-05-11] MEDS: CHOLECALCIFEROL 1,000 UNITS TABLET 2000 UNITS PO (09:26)
[2021-05-11] MEDS: METOPROLOL SUCCINATE EXT REL 25 MG TABCR PO (09:26)
[2021-05-11] MEDS: lisinopriL 2.5 MG TABLET PO (09:27)
[2021-05-11] MEDS: ATORVASTATIN 20 MG TABLET PO (09:27)
[2021-05-11] MEDS: CALCIUM CARBONATE (OSCAL) 500 MG TABLET PO (09:27)
[2021-05-11] MEDS: FLUTICASONE PROPIONATE 0.05% NA SPR 16 GM BTL (*BKC) 1 SPRAY NASAL (09:29)
--- NOTE | 2021-05-11 10:40 | PM.IMPN ---
Progress Note: A&P Assessment and Plan (1) Weakness: Code(s): R53.1 - Weakness Status: Acute Assessment and Plan: -s/p recent CVA -also recent liver mass biopsy, suspicious for malignancy -having trouble getting around at home, lives alone, admitted for placement -PT/OT (2) Acute dehydration: Code(s): E86.0 - Dehydration Status: Acute Assessment and Plan: -IVF hydration -improved (3) Liver mass: Code(s): R16.0 - Hepatomegaly, not elsewhere classified Status: Acute Assessment and Plan: -suspicious for malignancy -biopsy 05/06/21 -pcp and oncology follow up -will follow up with pathology tomorrow if not resulted yet (4) Abnormal liver enzymes: Code(s): R74.8 - Abnormal levels of other serum enzymes Status: Acute Assessment and Plan: -noted on last admission as well -likely related to liver mass -seen by GI on last admission -stable -will get CT abd/pelv (5) Elevated troponin: Code(s): R77.8 - Other specified abnormalities of plasma proteins Status: Acute Assessment and Plan: -minimally elevated but flat -significantly lower than last admission -no CP/SOB (6) Nausea: Code(s): R11.0 - Nausea Status: Acute Assessment and Plan: -still having episodes of nausea -could be related to possible malignancy, however biopsy is still pending -will check CT abd/pelv -zofran as needed Subjective Date/time seen: 05/11/21 10:40 Interval history: 80 yo male w/ hx of HTN, CVA, CAD s/p stent placement November 2020, neuropathy, and liver mass s/p biopsy 05/06/21, admitted to the Hospital for weakness and is awaiting SNF placement. Pt states he had a rough night last night. He was nauseated but did not have vomiting, abdominal pain, or nausea. He was given zofran which helped. Today he feels okay. No cp/sob. Review of Systems Review of Systems: All systems reviewed & are unremarkable except as noted in HPI and below Exam Narrative: General: No acute distress, non toxic appearing, thin, elderly Eyes: PERRL, no scleral icterus HEENT: NCAT, external ears normal, dry mucous membranes Respiratory: No respiratory distress, Lungs CTA bilaterally, no wheezing Cardiovascular: RRR, no murmur Abdominal: Soft, nontender, non distended, no rebound or guarding Musculoskeletal: Moves all 4 extremities, no edema Neurological: A/Ox3, speech normal, no facial asymmetry Skin: Warm, dry, no rashes Psychiatric: Normal affect, normal mood Objective Data Vital Signs Vital Signs: Vital Signs - 24 hr 05/10/21 13:20 05/10/21 13:54 05/10/21 16:00 Temperature 97.3 F L Pulse Rate 78 78 Respiratory Rate 16 Blood Pressure 104/51 L Pulse Oximetry 98 97 05/10/21 20:00 05/10/21 22:00 05/11/21 00:00 Temperature 99.2 F Pulse Rate 72 70 66 Respiratory Rate 16 Blood Pressure 98/47 L Pulse Oximetry 99 05/11/21 04:00 05/11/21 05:49 05/11/21 08:00 Temperature 97.4 F L Pulse Rate 66 74 60 Respiratory Rate 16 16 Blood Pressure 101/57 L Pulse Oximetry 98 98 05/11/21 09:26 Temperature Pulse Rate 60 Respiratory Rate Blood Pressure Pulse Oximetry Intake/Output Intake/Output: Intake & Output 05/08/21 05/09/21 05/10/21 05/12/21 23:59 23:59 23:59 00:59 Intake Total 2850 1550 Output Total 160 550 Balance 2690 1000 Meds/Results Medications: Active Medications Generic Name Dose Route Start Last Admin Trade Name Freq PRN Reason Stop Dose Admin Hydrocodone Bitart/Acetaminophen 0.5 tab 05/10/21 06:46 Hydrocodone/Acetaminophen (*Crx) 5-325 Mg Tablet PO BID PRN Pain (Scale Score 7-10) Artificial Tears 1 drop 05/10/21 06:46 Artificial Tears Ophth Soln 15 Ml Bottle EACH EYE QID PRN Dry Eye(S) Aspirin 81 mg 05/10/21 09:00 05/11/21 09:25 Aspirin 81 Mg Enteric Tablet PO 81 mg DAILY GABRIEL
[2021-05-11 13:26] LABS: Add Urine Microscopic? YES; Appearance Urine Clear (Clear); Bilirubin Urine Negative (Negative); Blood Urine 3+ (Negative); Color Urine Yellow (Yellow); Glucose Urine UA Negative (Negative); Ketones Urine Negative (Negative); Leukocyte Esterase Ur Negative LEU/UL (Negative); Nitrate Urine Negative (Negative); Protein Urine Negative (Negative); RBC Urine >75 /hpf (0-2); Urobilinogen Urine Negative mg/dL (<2.0)
[2021-05-11 13:28] LABS: Specific Grav Ur 1.034 (1.001-1.035)
[2021-05-11] MEDS: traMADol HCL (*CRX) 50 MG TABLET PO (20:40)
[2021-05-12] VITALS (11 sets, daily range): BP systolic 126–134; BP diastolic 62–68; PULSE 67–95; RESP 18–20; TEMP 36.1–37.2; O2SAT 95–97
[2021-05-12] MEDS: ONDANSETRON INJ 4 MG/2 ML VIAL IV PUSH ×3 (01:04→22:18)
[2021-05-12 06:27] LABS: Basophils Percent Auto 0.3 % (0.2-1.2); Eosinophils Percent Auto 0.3 % (0-4.4); Hematocrit 36.7 % (42.0-52.0); Hemoglobin 12.3 g/dL (14.0-18.0); Immature Granulocyte Absolute 0.23 K/mm3 (0.00-0.031); Lymphocytes Absolute Auto 0.51 K/mm3 (0.9-3.2); Lymphocytes Percent Auto 4.4 % (18.3-44.2); Mean Corpuscular HGB Conc 33.5 g/dl (32-36); Mean Corpuscular Hemoglobin 34.5 pg (26-34); Mean Corpuscular Volume 102.8 fl (80-100); Mean Platelet Volume 11.8 fl (7.4-10.4); Monocytes Absolute Auto 1.7 K/mm3 (0.1-0.6); Monocytes Percent Auto 14.3 % (2.6-8.5); Neutrophils Absolute Auto 9.2 K/mm3 (1.3-6.7); Neutrophils Percent Auto 78.7 % (45.5-73.1); Platelet Count Result 89 k/mm3 (150-375); Red Blood Count 3.57 M/mm3 (4.6-6.20); Red Cell Distribution Width 14.5 % (11.5-14.5); White Blood Count 11.7 K/mm3 (4.5-10.0)
[2021-05-12 06:37] LABS: Alanine Aminotransferase 54 U/L (4-50); Albumin Level 2.8 g/dL (3.5-5.1); Alkaline Phosphatase 620 U/L (38-126); Anion Gap 5 mmol/L (8-16); Aspartate Amino Transferase 72 U/L (17-59); Bilirubin,Total 2.1 mg/dL (0.2-1.3); Blood Urea Nitrogen 20 mg/dL (9-20); Calcium 8.1 mg/dL (8.4-10.2); Carbon Dioxide 23 mmol/L (22-30); Chloride 107 mmol/L (98-107); Estimated CRCL calculation 39 ml/min; Estimated Glomerular Filt Rate > 60; Glucose 111 mg/dL (65-110); Potassium 3.8 mmol/L (3.4-5.0); Sodium 135 mmol/L (137-145)
[2021-05-12] MEDS: lisinopriL 2.5 MG TABLET PO (08:57)
[2021-05-12] MEDS: METOPROLOL SUCCINATE EXT REL 25 MG TABCR PO (08:57)
[2021-05-12] MEDS: ASPIRIN 81 MG ENTERIC TABLET PO (08:57)
[2021-05-12] MEDS: ATORVASTATIN 20 MG TABLET PO (08:57)
[2021-05-12] MEDS: CHOLECALCIFEROL 1,000 UNITS TABLET 2000 UNITS PO (08:58)
[2021-05-12] MEDS: OPTI-GEN TAB 1 TABLET PO (08:58)
[2021-05-12] MEDS: ENOXAPARIN 40 MG/0.4 ML SYRINGE SUB-Q (08:58)
[2021-05-12] MEDS: CLOPIDOGREL BISULFATE 75 MG TABLET PO (08:58)
[2021-05-12] MEDS: CALCIUM CARBONATE (OSCAL) 500 MG TABLET PO (08:59)
--- NOTE | 2021-05-12 12:35 | PM.IMPN ---
Progress Note: A&P Assessment and Plan (1) Weakness: Code(s): R53.1 - Weakness Status: Acute Assessment and Plan: -s/p recent CVA -having trouble getting around at home, lives alone, admitted for placement -recent liver mass biopsy, suspicious for malignancy which is likely cause of his weakness -CT abd/pelv with pancreatic mass consistent with adenocarcinoma, right adrenal mass, multiple liver masses, and peritoneal carcinomatosis -pending results of biopsy and oncology consult, patient would like a hospice consult (2) Pancreatic mass: Code(s): K86.89 - Other specified diseases of pancreas Status: Acute Assessment and Plan: -see above (3) Liver mass: Code(s): R16.0 - Hepatomegaly, not elsewhere classified Status: Acute Assessment and Plan: -suspicious for malignancy -biopsy 05/06/21 -pending biopsy result and oncology consult -see above (4) Acute dehydration: Code(s): E86.0 - Dehydration Status: Acute Assessment and Plan: -IVF hydration -improved (5) Abnormal liver enzymes: Code(s): R74.8 - Abnormal levels of other serum enzymes Status: Acute Assessment and Plan: -noted on last admission as well -likely related to liver mass -seen by GI on last admission -stable (6) Elevated troponin: Code(s): R77.8 - Other specified abnormalities of plasma proteins Status: Acute Assessment and Plan: -minimally elevated but flat -significantly lower than last admission -no CP/SOB (7) Nausea: Code(s): R11.0 - Nausea Status: Acute Assessment and Plan: -still having episodes of nausea -could be related to possible malignancy, however biopsy is still pending -zofran as needed Subjective Date/time seen: 05/12/21 12:35 Interval history: 80 yo male w/ hx of HTN, CVA, CAD s/p stent placement November 2020, neuropathy, and liver mass s/p biopsy 05/06/21, admitted to the Hospital for weakness and is awaiting SNF placement. Pt does not feel great today. He doesn't have an appetite and hasn't eaten today. He has some nausea still. No vomiting. Some abdominal bloating but no significant pain. Has a headache. No cp/sob. Discussed findings of CT abd/pelv with patient and caregiver at bedside. Findings appear to be consistent with metastatic pancreatic cancer. Pending biopsy and oncology consult. Discussed hospice, patient would like to meet with hospice and ultimately will likely go home with hospice rather than SNF. Review of Systems Review of Systems: All systems reviewed & are unremarkable except as noted in HPI and below Exam Narrative: General: No acute distress, non toxic appearing, thin, elderly Eyes: PERRL, no scleral icterus HEENT: NCAT, external ears normal, mucous membranes moist Respiratory: No respiratory distress, Lungs CTA bilaterally, no wheezing Cardiovascular: RRR, no murmur Abdominal: Soft, nontender, non distended, no rebound or guarding Musculoskeletal: Moves all 4 extremities, no edema Neurological: A/Ox3, speech normal, no facial asymmetry Skin: Warm, dry, no rashes Psychiatric: Normal affect, normal mood Objective Data Vital Signs Vital Signs: Vital Signs - 24 hr 05/11/21 14:00 05/11/21 16:00 05/11/21 20:00 Temperature 96.0 F L Pulse Rate 64 68 89 Respiratory Rate 16 Blood Pressure 115/56 L Pulse Oximetry 99 05/11/21 21:43 05/11/21 22:35 05/12/21 00:00 Temperature 98.1 F Pulse Rate 75 76 Respiratory Rate 18 Blood Pressure 130/58 L Pulse Oximetry 100 95 05/12/21 04:00 05/12/21 05:50 05/12/21 08:00 Temperature 98.7 F Pulse Rate 79 82 95 Respiratory Rate 18 18 Blood Pressure 131/68 Pulse Oximetry 97 96 05/12/21 08:08 05/12/21 08:57 Temperature Pulse Rate 95 Respiratory Rate Blood Pressure Pulse Oximetry 96 Intake/Output Intake/Output: Inta
[2021-05-12] MEDS: HYDROcodone/acetaminophen (*CRX) 5-325 MG TABLET 0.5 TAB PO ×2 (13:08→22:16)
--- NOTE | 2021-05-12 14:33 | PCOTNOTE ---
Attempted to see patient, per caregiver patient going hospice. Will discuss plan of care with OT to determine continuing to treat or d/c patient from therapy services. Patient not seen for OT.
--- NOTE | 2021-05-12 19:02 | PDONCCN ---
HPI - Date of Consult Date/Time: 05/12/21 19:02 Requesting Physician: Katie Maldonado PA-C Primary Care Provider: Jerry Hernandez, DO - Consult Narrative Reason for consult: Metastatic cancer Narrative: Mamadou Nielsen is a 80 year old male with history of early stage prostate cancer diagnosed in 2008 but did not receive any treatment and kept under surveillance. He was recently admitted to the hospital on April 30 status post fall secondary to weakness. CT scan of abdomen and pelvis showed extensive hepatic metastasis and right adrenal mass. Liver biopsy was performed on May 06 and pathology remains pending. Patient now came back into the hospital with further weakness for several weeks duration along with mental status changes and confusion. He has been having some lightheaded spells. Head CT came back normal. CT abdomen pelvis showed pancreatic mass consistent with primary adenocarcinoma along with liver masses and peritoneal carcinomatosis. There was also right adrenal mass. Patient has been complaining of extreme tiredness and fatigue and remains quite confused. Review of Systems - Review of Systems All systems reviewed & are unremarkable except as noted in HPI and [facility] Medical History: Medical History (Last Updated 05/10/21 @ 08:56 by Katie Maldonado PA-C) Abnormal liver enzymes CVA (cerebral vascular accident) Hypertension Liver lesion Peripheral neuropathy Post herpetic neuralgia Weight loss Surgical History: Surgical History (Last Updated 05/10/21 @ 08:53 by Katie Maldonado PA-C) H/O cataract removal with insertion of prosthetic lens H/O colonoscopy History of coronary angioplasty with insertion of stent Hx of hernia repair Hx of laminectomy Hx of lithotripsy Status post lateral meniscal repair Family History: Family History (Last Reviewed 05/10/21 @ 08:54 by Katie Maldonado PA-C) Sibling Family history of Parkinson's disease, Onset Age: 81 Patient's brother is Father Family history of heart disease in male family member before age 55, Onset Age: 56 Patient's father is Family history of cardiovascular disease, Onset Age: 56 Mother Family history of heart disease in male family member before age 55, Onset Age: 83 Patient's mother is Family history of cardiovascular disease, Onset Age: 83 - Social History Social History: Social History (Last Updated 05/10/21 @ 08:54 by Katie Maldonado PA-C) Gender Identity: Gender identity (if verbalized by the patient): Male Sexual Orientation: Sexual Orientation (if Verbalized by the Patient): Straight or Heterosexual Alcohol Use: Alcohol intake: never Substance Use: Substance use: never Substance use type: does not use Others: Spiritual care concerns: No Smoking Status: Smoking status: Never smoker Second hand tobacco smoke exposure: No Meds Home Medications Medication Instructions Recorded Confirmed Type calcium carbonate 600 mg calcium 600 mg PO DAILY 03/14/19 05/10/21 History (1,500 mg) tablet cholecalciferol (vitamin D3) 50 2,000 unit PO DAILY 03/14/19 05/10/21 History mcg (2,000 unit) tablet fluticasone propionate 50 1 spray NASAL DAILY PRN #15.8 ml 06/20/20 05/10/21 Rx mcg/actuation nasal spray,suspension vitamin A-vitamin C-vit E-min 1 tablet PO DAILY 12/19/20 05/10/21 History [Ocutabs] aspirin 81 mg tablet,delayed 81 mg PO DAILY 01/27/21 05/10/21 History release clopidogrel 75 mg tablet 75 mg PO DAILY 01/27/21 05/10/21 History lisinopril 2.5 mg tablet 2.5 mg PO QAM 01/27/21 05/10/21 History metoprolol succinate 25 mg 25 mg PO QAM 01/27/21 05/10/21 History tablet,extended release 24 hr hydrocodone-acetaminophen 0.5 tablet PO BID PRN 04/29/21 05/10/21 History tramadol 50 mg PO HS 04/29/21 05/10/21 History enoxaparin [Lovenox] 60 mg SUBCUT Q12H #6 ml
[2021-05-12] MEDS: traMADol HCL (*CRX) 50 MG TABLET PO (20:21)
[2021-05-13] VITALS (7 sets, daily range): BP systolic 126–134; BP diastolic 59–79; PULSE 76–101; RESP 18–20; TEMP 36.2–36.8; O2SAT 96–99
[2021-05-13] MEDS: ATORVASTATIN 20 MG TABLET PO (08:22)
[2021-05-13] MEDS: ARTIFICIAL TEARS OPHTH SOLN 15 ML BOTTLE 1 DROP EACH EYE (08:22)
[2021-05-13] MEDS: lisinopriL 2.5 MG TABLET PO (08:22)
[2021-05-13] MEDS: CALCIUM CARBONATE (OSCAL) 500 MG TABLET PO (08:22)
[2021-05-13] MEDS: ASPIRIN 81 MG ENTERIC TABLET PO (08:22)
[2021-05-13] MEDS: OPTI-GEN TAB 1 TABLET PO (08:22)
[2021-05-13] MEDS: CLOPIDOGREL BISULFATE 75 MG TABLET PO (08:23)
[2021-05-13] MEDS: FLUTICASONE PROPIONATE 0.05% NA SPR 16 GM BTL (*BKC) 1 SPRAY NASAL (08:23)
[2021-05-13] MEDS: SODIUM CHLORIDE 0.9% IV 1,000 ML 80 ML IV CONT (08:23)
[2021-05-13] MEDS: METOPROLOL SUCCINATE EXT REL 25 MG TABCR PO (08:23)
[2021-05-13] MEDS: CHOLECALCIFEROL 1,000 UNITS TABLET 2000 UNITS PO (08:23)
[2021-05-13] MEDS: HYDROcodone/acetaminophen (*CRX) 5-325 MG TABLET 0.5 TAB PO (08:27)
--- NOTE | 2021-05-13 09:30 | PM.DS ---
DS: Admitting Diagnosis Discharge Date 05/13/21 Admitting Diagnosis weakness DS: Discharge Diagnosis Discharge Diagnosis (1) Weakness: Code(s): R53.1 - Weakness Status: Acute Assessment and Plan: -s/p recent CVA -having trouble getting around at home, lives alone, admitted for placement -recent liver mass biopsy pending, mass was suspicious for malignancy which is likely cause of his weakness -CT abd/pelv with pancreatic mass consistent with adenocarcinoma, right adrenal mass, multiple liver masses, and peritoneal carcinomatosis -oncology consulted yesterday who recommends hospice -pt met with hospice yesterday and would like to go home with hospice today (2) Pancreatic mass: Code(s): K86.89 - Other specified diseases of pancreas Status: Acute Assessment and Plan: -see above (3) Liver mass: Code(s): R16.0 - Hepatomegaly, not elsewhere classified Status: Acute Assessment and Plan: -suspicious for malignancy -biopsy 05/06/21 -pending biopsy -see above (4) Acute dehydration: Code(s): E86.0 - Dehydration Status: Acute Assessment and Plan: -IVF hydration -improved (5) Abnormal liver enzymes: Code(s): R74.8 - Abnormal levels of other serum enzymes Status: Acute Assessment and Plan: -noted on last admission as well -likely related to liver mass -seen by GI on last admission -stable (6) Elevated troponin: Code(s): R77.8 - Other specified abnormalities of plasma proteins Status: Acute Assessment and Plan: -minimally elevated but flat -significantly lower than last admission -no CP/SOB (7) Nausea: Code(s): R11.0 - Nausea Status: Acute Assessment and Plan: -still having episodes of nausea -likely related to possible malignancy, however biopsy is still pending -zofran as needed -pt being discharged to hospice DS: Summary Hospital Course Reason for hospitalization: 80 yo male w/ hx of HTN, CVA, CAD s/p stent placement November 2020, neuropathy, and liver mass s/p biopsy 05/06/21, admitted to the Hospital for weakness and SNF placement. Please see HPI for further details. Hospital Course: 80 yo male w/ hx of HTN, CVA, CAD s/p stent placement November 2020, neuropathy, and liver mass s/p biopsy 05/06/21, admitted to the Hospital for weakness and SNF placement. Ultimately CT abd/pelv found pancreatic mass consitent with primary adenocarcinoma with multiple liver masses, R adrenal mass, and carcinomatosis. Pt met with oncologist and hospice team, he has chosen to go home with hospice. Please see above for further details of hospital course. Status at Discharge Cognitive/behavioral status at discharge: stable Functional status at discharge: bed bound Overall status at discharge: patient is not back to baseline Time Spent with Patient Time attestation: Total time spent providing and/or coordinating discharge services: 35 Time spent: Greater than 30 minutes Exam Narrative: General: No acute distress, non toxic appearing, thin, elderly Eyes: PERRL, no scleral icterus HEENT: NCAT, external ears normal, mucous membranes moist Respiratory: No respiratory distress, Lungs CTA bilaterally, no wheezing Cardiovascular: RRR, no murmur Abdominal: Soft, nontender, non distended, no rebound or guarding Musculoskeletal: Moves all 4 extremities, no edema Neurological: A/Ox3, speech normal, no facial asymmetry Skin: Warm, dry, no rashes Psychiatric: Normal affect, normal mood Discharge Plan Discharge Attending physician on discharge: Cassius Arita Consulting providers: Álvaro Arroyo Discharging Clinician: Katie Maldonado Anticipated Discharge Date/Time: 05/13/21 09:36 Patient Disposition: Hospice - Home Activity: as tolerated Diet: regular Patient Instructions: Hospice Care (GEN) Stand Alone Forms:
[2021-05-13] MEDS: HYDROcodone/acetaminophen (*CRX) 5-325 MG TABLET 1 TAB PO (13:43)
== END 2021-05-13 19:30 | disposition hospice, home (50) ==
LOC: ANHED 02:53 → ANH3MEDSUR 04:53
PROVIDERS: Physician Assistant; Admitting Provider Internal Medicine; Emergency Provider Emergency Medicine; PCP Internal Medicine; Visit Provider Family Medicine
DX: R53.1 Weakness (principal); C61 Malignant neoplasm of prostate; R11.0 Nausea; E86.0 Dehydration; D69.6 Thrombocytopenia, unspecified; R16.0 Hepatomegaly, not elsewhere classified; K86.89 Other specified diseases of pancreas; R77.8 Other specified abnormalities of plasma proteins; I25.10 Atherosclerotic heart disease of native coronary artery without angina pectoris; I10 Essential (primary) hypertension; G62.9 Polyneuropathy, unspecified; B02.29 Other postherpetic nervous system involvement; R79.89 Other specified abnormal findings of blood chemistry; Z79.82 Long term (current) use of aspirin; Z79.02 Long term (current) use of antithrombotics/antiplatelets; Z79.891 Long term (current) use of opiate analgesic; Z86.73 Personal history of transient ischemic attack (TIA), and cerebral infarction without residual deficits; Z95.5 Presence of coronary angioplasty implant and graft
CPT/HCPCS: 36415; 70450; 71045; 74177; 80053; 81001; 83036; 83690; 84484; 85025; 85055; 85610; 85730; 93005; 96361; 96372; 96374; 96376; 97110; 97112; 97116; 97162; 97166; 97530; 99285; A9270; G0378; J1650; J2405; J7030; Q9967